=== PATIENT | female | born 1975 | race Caucasian/White ===

== ENCOUNTER 2016-11-14 12:51 | Emergency (ER) | payer MEDICAID, OTHER ==
[~2016-11-14] VITALS: Ht 167.6 cm; Wt 65.8 kg
[~2016-11-14 12:51] MED LIST: LAMO200T62 OR; MON10T PO
[2016-11-14 13:50] LABS: Urine Ca Oxalate Crystal FEW (None Seen); Urine Color Red (Yellow); Urine Glucose Normal (Normal); Urine Hyaline Cast MANY /lpf (0 - 2); Urine Ketone TRACE (Negative); Urine Mucus FEW (None Seen); Urine Nitrite Negative (Negative); Urine RBC 299 /hpf (0 - 4); Urine Squamous Epithelial Cell FEW /hpf (<5); Urine pH 5.5 (5.0-8.0)
[2016-11-14 13:56] LABS: Urine Bilirubin Negative (Negative); Urine Blood 2+ /uL (Negative)
[2016-11-14 14:02] LABS: Basophils # (auto) 0 uL; Basophils % (auto) 0.4 % (0.0-2.0); Eosinophils # (auto) 0.1 uL; Eosinophils % (auto) 0.8 % (0.0-7.0); Hematocrit 30.5 % (36.0-46.0); Hemoglobin 10.5 g/dL (12.2-16.2); Lymphocytes # (auto) 1.6 uL; Lymphocytes % (auto) 14.8 % (10.0-50.0); Mean Corpuscular Hemoglobin 34.5 pg (28.0-32.0); Mean Corpuscular Hgb Conc. 34.2 g/dL (32.0-36.0); Mean Corpuscular Volume 100.7 fL (80.0-100.0); Mean Platelet Volume 6.9 fL (7.4-10.4); Monocytes # (auto) 0.7 uL; Monocytes % (auto) 6.9 % (0.0-12.0); Neutrophils # (auto) 8.3 uL; Neutrophils % (auto) 77.1 % (37.0-80.0); Platelet Count (auto) 479 10^3/uL (140-450); Red Cell Distribution Width 15.9 % (11.6-16.0); White Blood Cell 10.8 10^3/uL (4.4-10.8)
[2016-11-14 14:33] LABS: Albumin 4.6 g/dL (3.4-5.0); Alkaline Phosphatase 132 U/L (45-117); Anion Gap 11 (5-15); Aspartate Aminotransferase 126 U/L (15-37); BUN/Creatinine Ratio 8.7; Bilirubin, Total 0.7 mg/dL (0.2-1.0); Blood Urea Nitrogen 25 mg/dL (7-18); Calcium 11.2 mg/dL (8.5-10.1); Carbon Dioxide 27 mmol/L (21-32); Chloride 95 mmol/L (98-107); GFR African American 23 mL/min; GFR Non-African American 19 mL/min; Glucose 90 mg/dL (74-106); Magnesium 1.4 mg/dL (1.6-2.6); Potassium 3.5 mmol/L (3.5-5.1); Sodium 133 mmol/L (136-145); Total Protein 8.5 g/dL (6.4-8.2)
[2016-11-14] MEDS ORDERED: cefTRIAXone 1GM/50ML D5W 50 ML IV ONE (15:15)
[2016-11-14] MEDS ORDERED: MAGNESIUM OXIDE 400 MG TAB PO ONE (15:15)
[2016-11-14 15:30] VITALS: BP 119/76
[2016-11-14 17:11] LABS: Salicylate < 1.7 mg/dL (2.8-20.0)
[2016-11-14 17:15] LABS: Acetaminophen < 2.0 ug/mL (10-30)
== END 2016-11-14 18:46 | disposition home or self-care (01) ==
LOC: ER 12:52
DX: F28 Other psychotic disorder not due to a substance or known physiological condition (principal); F32.9 Major depressive disorder, single episode, unspecified; F17.210 Nicotine dependence, cigarettes, uncomplicated; F41.9 Anxiety disorder, unspecified; D50.9 Iron deficiency anemia, unspecified; N39.0 Urinary tract infection, site not specified
CPT/HCPCS: 36415; 80053; 80307; 80320; 80329; 81001; 83735; 85025; 94761; 96365; 99284; J0696

== ENCOUNTER 2017-05-20 19:36 | Emergency (ER) | payer SELFPAY ==
[~2017-05-20] VITALS: Ht 167.6 cm; Wt 63.0 kg
[2017-05-20 22:53] VITALS: BP 148/109
== END 2017-05-20 23:46 | disposition home or self-care (01) ==
LOC: ER 19:36
DX: F32.9 Major depressive disorder, single episode, unspecified (principal); F41.9 Anxiety disorder, unspecified; Z79.899 Other long term (current) drug therapy; F17.210 Nicotine dependence, cigarettes, uncomplicated; Z76.0 Encounter for issue of repeat prescription

== ENCOUNTER 2018-06-03 12:54 | Emergency (ER) | payer MEDICAID, OTHER ==
[~2018-06-03] VITALS: Ht 172.7 cm; Wt 59.0 kg
[2018-06-03 13:25] VITALS: BP 145/96
[2018-06-03] MEDS ORDERED: SODIUM CHLORIDE 0.9% 1,000 ML IV ONE (13:28)
[2018-06-03] MEDS ORDERED: ONDANSETRON HCL 4 MG/2 ML VIAL IV ONE (13:30)
[2018-06-03] MEDS ORDERED: LORazepam 2MG/ML-1ML VIAL IV ONE (13:30)
[2018-06-03] MEDS ORDERED: PANTOPRAZOLE 40 MG/10 ML VIAL IV ONE (13:30)
[2018-06-03 13:43] LABS: Basophils # (auto) 0 uL; Basophils % (auto) 0.4 % (0.0-2.0); Eosinophils # (auto) 0 uL; Eosinophils % (auto) 0.1 % (0.0-7.0); Hematocrit 32.9 % (36.0-46.0); Hemoglobin 10.9 g/dL (12.2-16.2); Lymphocytes # (auto) 0.3 uL; Lymphocytes % (auto) 7.3 % (10.0-50.0); Mean Corpuscular Hemoglobin 29.7 pg (28.0-32.0); Mean Corpuscular Hgb Conc. 33.2 g/dL (32.0-36.0); Mean Corpuscular Volume 89.5 fL (80.0-100.0); Monocytes # (auto) 0.2 uL; Monocytes % (auto) 5.6 % (0.0-12.0); Neutrophils # (auto) 3.6 uL; Neutrophils % (auto) 86.6 % (37.0-80.0); Platelet Count (auto) 244 10^3/uL (140-450); Red Blood Cells 3.68 10^6/uL (4.0-5.20); White Blood Cell 4.2 10^3/uL (4.4-10.8)
[2018-06-03 13:53] LABS: Red Cell Distribution Width 20.6 % (11.8-14.3)
[2018-06-03 14:08] LABS: Albumin 3.2 g/dL (3.4-5.0); Calcium 8.8 mg/dL (8.5-10.1); Magnesium 1.6 mg/dL (1.6-2.6); Potassium 3.6 mmol/L (3.5-5.1)
[2018-06-03 14:13] LABS: BUN/Creatinine Ratio 24.7; Bilirubin, Total 0.4 mg/dL (0.2-1.0); Total Protein 8.5 g/dL (6.4-8.2)
== END 2018-06-03 15:28 | disposition home or self-care (01) ==
LOC: EDBD 12:54 → ER 12:54
DX: F10.239 Alcohol dependence with withdrawal, unspecified (principal); F41.9 Anxiety disorder, unspecified; F32.9 Major depressive disorder, single episode, unspecified; J45.909 Unspecified asthma, uncomplicated; F17.210 Nicotine dependence, cigarettes, uncomplicated; R42 Dizziness and giddiness; Y90.9 Presence of alcohol in blood, level not specified
CPT/HCPCS: 36415; 70450; 71250; 80053; 83735; 85025; 94761; 96361; 96374; 96375; 99284; C9113; J2060; J2405; J7030

== ENCOUNTER 2018-08-04 14:14 | Emergency (ER) | payer MEDICAID ==
[~2018-08-04] VITALS: Ht 165.1 cm; Wt 68.0 kg
[~2018-08-04 14:14] MED LIST changes: +ALBUAER3 IN; +DIPH25CA66 PO; +FLUT500M2 INH; -LAMO200T62 OR; +LAMO200T62 PO; +ONDA4TAB5 PO
[2018-08-04] MEDS ORDERED: SODIUM CHLORIDE 0.9% 500 ML IVB ONE (14:30)
[2018-08-04] MEDS ORDERED: PANTOPRAZOLE 40 MG/10 ML VIAL IV STA (14:30)
[2018-08-04 15:44] LABS: BUN/Creatinine Ratio 34.4; Calcium 9.1 mg/dL (8.5-10.1); Magnesium 1.7 mg/dL (1.6-2.6); Potassium 3.5 mmol/L (3.5-5.1)
[2018-08-04 15:48] LABS: Bilirubin, Total 0.3 mg/dL (0.2-1.0); Total Protein 7.2 g/dL (6.4-8.2)
[2018-08-04 16:05] LABS: Basophils # (auto) 0 uL; Basophils % (auto) 0.2 % (0.0-2.0); Eosinophils # (auto) 0 uL; Hemoglobin 8.9 g/dL (12.2-16.2); Lymphocytes # (auto) 0.6 uL; Lymphocytes % (auto) 16.7 % (10.0-50.0); Mean Corpuscular Hemoglobin 30.1 pg (28.0-32.0); Mean Corpuscular Volume 91.2 fL (80.0-100.0); Monocytes # (auto) 0.3 uL; Monocytes % (auto) 8.5 % (0.0-12.0); Neutrophils # (auto) 2.7 uL; Neutrophils % (auto) 73.6 % (37.0-80.0); Nucleated Red Blood Cells % 0.2 %; Platelet Count (auto) 160 10^3/uL (140-450); Red Blood Cells 2.96 10^6/uL (4.0-5.20); White Blood Cell 3.7 10^3/uL (4.4-10.8)
[2018-08-04 16:16] LABS: Red Cell Distribution Width 24.2 % (11.8-14.3)
[2018-08-04] MEDS ORDERED: PROCHLORPERAZINE EDISYLATE 5 MG/ML 2ML VIAL IV ONE (17:30)
[2018-08-04 18:00] VITALS: BP 101/74
== END 2018-08-04 17:25 | disposition home or self-care (01) ==
LOC: EDUNIT# 14:14 → EDBD 14:14 → ER 14:17
DX: F10.229 Alcohol dependence with intoxication, unspecified (principal); R11.2 Nausea with vomiting, unspecified; J45.909 Unspecified asthma, uncomplicated; Z79.899 Other long term (current) drug therapy; Z87.891 Personal history of nicotine dependence
CPT/HCPCS: 36415; 74176; 80053; 80320; 82150; 83690; 83735; 85025; 94761; 96361; 96374; 96375; 99284; C9113; J0780; J7040

== ENCOUNTER 2018-11-16 08:57 | Inpatient (IN) | payer MEDICAID | END 2018-11-18 16:30 | disposition home or self-care (01) | LOC: ER 08:57 → TELE 13:45 → TELE-WESTW 15:55 | DX: D64.9 Anemia, unspecified (principal); N17.0 Acute kidney failure with tubular necrosis; F32.9 Major depressive disorder, single episode, unspecified; Z87.11 Personal history of peptic ulcer disease; E87.6 Hypokalemia; F10.10 Alcohol abuse, uncomplicated ==

== ENCOUNTER 2019-02-13 14:30 | Emergency (ER) | payer MEDICAID ==
[~2019-02-13] VITALS: Ht 167.6 cm; Wt 50.8 kg
[~2019-02-13 14:30] MED LIST changes: -ALBUAER3 IN; -DIPH25CA66 PO; -FLUT500M2 INH; -ONDA4TAB5 PO
[2019-02-13] MEDS ORDERED: ONDANSETRON HCL 4 MG/2 ML VIAL IV ONE ×2 (15:00→17:15)
[2019-02-13] MEDS ORDERED: SODIUM CHLORIDE 0.9% 1,000 ML IV ONE (15:00)
[2019-02-13 15:49] LABS: Basophils # (auto) 0.1 uL; Eosinophils # (auto) 0.4 uL; Hematocrit 33.7 % (36.0-46.0); Mean Corpuscular Hemoglobin 33.5 pg (28.0-32.0); Monocytes # (auto) 0.5 uL; Nucleated Red Blood Cells % 0.1 %; White Blood Cell 7.3 10^3/uL (4.4-10.8)
[2019-02-13 15:54] LABS: Hemoglobin 11.2 g/dL (12.2-16.2); Lymphocytes # (auto) 1.4 uL; Mean Corpuscular Hgb Conc. 33.4 g/dL (32.0-36.0); Mean Corpuscular Volume 100.4 fL (80.0-100.0); Monocytes % (auto) 7.2 % (0.0-12.0); Neutrophils # (auto) 4.9 uL; Neutrophils % (auto) 67.8 % (37.0-80.0); Red Blood Cells 3.35 10^6/uL (4.0-5.20)
[2019-02-13 16:02] LABS: Red Cell Distribution Width 20.8 % (11.8-14.3)
[2019-02-13 16:03] LABS: Platelet Count (auto) 549 10^3/uL (140-450)
[2019-02-13 16:07] LABS: Calcium 11.2 mg/dL (8.5-10.1)
[2019-02-13 16:10] LABS: BUN/Creatinine Ratio 6.9
[2019-02-13] MEDS ORDERED: POTASSIUM CHL 20MEQ/100ML 100 ML IV ONE (16:45)
[2019-02-13] MEDS ORDERED: POTASSIUM CHL 20 Meq TABLET PO ONE (16:45)
[2019-02-13] MEDS ORDERED: ALUM & MAG HYDROX-SIMETH LIQ(MAALOX) 30 ML PO ONE (17:00)
[2019-02-13 18:20] VITALS: BP 119/86
[2019-02-13 18:21] LABS: Blood Alcohol < 3.0 mg/dL (0-5); Lipase 501 U/L (73-393); Magnesium 1.9 mg/dL (1.6-2.6)
== END 2019-02-13 19:20 | disposition home or self-care (01) ==
LOC: ER 14:30
DX: E87.6 Hypokalemia (principal); R42 Dizziness and giddiness; F17.210 Nicotine dependence, cigarettes, uncomplicated; J45.909 Unspecified asthma, uncomplicated
CPT/HCPCS: 36415; 80048; 80320; 83690; 83735; 85025; 93005; 94761; 96361; 96365; 96366; 96375; 96376; 99284; J2405; J3480; J7030

== ENCOUNTER 2019-03-28 11:30 | Emergency (ER) | payer MEDICAID ==
[~2019-03-28] VITALS: Ht 167.6 cm; Wt 54.4 kg
[2019-03-28] MEDS ORDERED: SODIUM CHLORIDE 0.9% 1,000 ML IV ONE (11:47)
[2019-03-28] MEDS ORDERED: PROCHLORPERAZINE EDISYLATE 5 MG/ML 2ML VIAL IV ONE (12:00)
[2019-03-28] MEDS ORDERED: FAMOTIDINE (10MG/ML) 2ML VL IV ONE (12:00)
[2019-03-28 12:14] LABS: Basophils # (auto) 0.1 uL; Basophils % (auto) 0.9 % (0.0-2.0); Eosinophils # (auto) 0.1 uL; Eosinophils % (auto) 1.1 % (0.0-7.0); Hemoglobin 11.6 g/dL (12.2-16.2); Lymphocytes # (auto) 0.9 uL; Lymphocytes % (auto) 15.7 % (10.0-50.0); Mean Corpuscular Hemoglobin 32.3 pg (28.0-32.0); Mean Corpuscular Volume 94.9 fL (80.0-100.0); Monocytes # (auto) 0.5 uL; Monocytes % (auto) 8.3 % (0.0-12.0); Neutrophils # (auto) 4.1 uL; Platelet Count (auto) 571 10^3/uL (140-450); Red Blood Cells 3.58 10^6/uL (4.0-5.20); Red Cell Distribution Width 16.3 % (11.8-14.3); White Blood Cell 5.6 10^3/uL (4.4-10.8)
[2019-03-28 12:22] LABS: Albumin 3.4 g/dL (3.4-5.0); BUN/Creatinine Ratio 11.1; Calcium 9.6 mg/dL (8.5-10.1)
[2019-03-28 12:24] LABS: Bilirubin, Total 0.4 mg/dL (0.2-1.0); Total Protein 7.7 g/dL (6.4-8.2)
[2019-03-28 12:32] LABS: Potassium 2.9 mmol/L (3.5-5.1)
[2019-03-28] MEDS ORDERED: POTASSIUM CHL 20 Meq TABLET PO ONE (14:30)
[2019-03-28 18:15] VITALS: BP 159/95
== END 2019-03-28 18:48 | disposition home or self-care (01) ==
LOC: EDBD 11:30 → EDSEX 11:30 → ER 11:32
DX: K29.70 Gastritis, unspecified, without bleeding (principal); E87.6 Hypokalemia; J45.909 Unspecified asthma, uncomplicated; Z87.891 Personal history of nicotine dependence; Z87.11 Personal history of peptic ulcer disease
CPT/HCPCS: 36415; 80053; 83690; 85025; 94761; 96361; 96374; 96375; 99283; J0780; J3490; J7030

== ENCOUNTER 2019-04-21 14:08 | Inpatient (IN) | payer MEDICAID ==
[~2019-04-21] VITALS: Ht 167.6 cm; Wt 80.8 kg
[2019-04-21 15:16] LABS: Basophils # (auto) 0 uL; Basophils % (auto) 0.4 % (0.0-2.0); Hemoglobin 11.8 g/dL (12.2-16.2); Lymphocytes # (auto) 1.6 uL; Monocytes # (auto) 0.5 uL; Neutrophils # (auto) 4.6 uL
[2019-04-21 15:18] LABS: Eosinophils # (auto) 0.8 uL; Eosinophils % (auto) 10.4 % (0.0-7.0); Hematocrit 35.7 % (36.0-46.0); Lymphocytes % (auto) 21.6 % (10.0-50.0); Mean Corpuscular Hemoglobin 31.4 pg (28.0-32.0); Monocytes % (auto) 6.9 % (0.0-12.0); Neutrophils % (auto) 60.7 % (37.0-80.0); Nucleated Red Blood Cells % 0.1 %; Platelet Count (auto) 465 10^3/uL (140-450); Red Blood Cells 3.76 10^6/uL (4.0-5.20); Red Cell Distribution Width 14.5 % (11.8-14.3); White Blood Cell 7.5 10^3/uL (4.4-10.8)
[2019-04-21 15:27] LABS: Albumin 3.7 g/dL (3.4-5.0); Potassium 3.8 mmol/L (3.5-5.1)
[2019-04-21 15:28] LABS: BUN/Creatinine Ratio 17.1
[2019-04-21 15:31] LABS: Bilirubin, Total 0.4 mg/dL (0.2-1.0); Total Protein 8.2 g/dL (6.4-8.2)
[2019-04-21] MEDS ORDERED: PANTOPRAZOLE 40 MG/10 ML VIAL INJ IV ONE (18:00)
[2019-04-21 18:44] LABS: Urine Bacteria MOD /hpf (None Seen); Urine Blood Negative /uL (Negative); Urine Mucus FEW (None Seen); Urine Specific Gravity 1.029 (1.001-1.035); Urine WBC 5 /hpf (0 - 5)
[2019-04-21 18:51] LABS: INR 0.93 (0.9-1.15)
[2019-04-21] MEDS ORDERED: ACETAMINOPHEN 325 MG TAB PO ONE (20:30)
[2019-04-21] MEDS ORDERED: ONDANSETRON HCL 4 MG/2 ML VIAL IV PRN (21:30)
[2019-04-21] MEDS: D5W/SOD CHLO 0.9% 1,000 ML IV SCH (21:49)
[2019-04-21] MEDS: MONTELUKAST SODIUM 10 MG TAB PO SCH (21:50)
[2019-04-21] MEDS: SUCRALFATE 1 GM TAB PO SCH (21:50)
[2019-04-21] MEDS: lamoTRIgine 100 MG TAB PO SCH (21:50)
[2019-04-21 21:54] LABS: Hemoglobin 10.4 g/dL (12.2-16.2)
[2019-04-21 22:30] VITALS: BP 122/88
[2019-04-21] MEDS ORDERED: INFLUENZA QUAD 2019-2020 0.5ml SYRG IM ONE (23:00)
[2019-04-22 01:01] VITALS: BP 122/88
[2019-04-22] MEDS: ACETAMINOPHEN 325 MG TAB PO PRN ×2 (04:08→10:01)
[2019-04-22] MEDS: SUCRALFATE 1 GM TAB PO SCH ×4 (06:02→22:12)
[2019-04-22 06:25] LABS: Basophils # (auto) 0 uL; Eosinophils # (auto) 0.7 uL; Eosinophils % (auto) 14.2 % (0.0-7.0); Hematocrit 30.5 % (36.0-46.0); Hemoglobin 10.1 g/dL (12.2-16.2); Lymphocytes # (auto) 1.8 uL; Lymphocytes % (auto) 35.3 % (10.0-50.0); Mean Corpuscular Hemoglobin 31.6 pg (28.0-32.0); Mean Corpuscular Hgb Conc. 33.2 g/dL (32.0-36.0); Monocytes # (auto) 0.4 uL; Monocytes % (auto) 7.7 % (0.0-12.0); Neutrophils # (auto) 2.1 uL; Neutrophils % (auto) 41.8 % (37.0-80.0); Nucleated Red Blood Cells % 0.1 %; Platelet Count (auto) 361 10^3/uL (140-450); Red Blood Cells 3.21 10^6/uL (4.0-5.20); Red Cell Distribution Width 14.3 % (11.8-14.3); White Blood Cell 5.1 10^3/uL (4.4-10.8)
[2019-04-22 07:08] LABS: Calcium 8.9 mg/dL (8.5-10.1); Potassium 3.5 mmol/L (3.5-5.1)
[2019-04-22 07:10] LABS: BUN/Creatinine Ratio 18.9
--- NOTE | 2019-04-22 07:30 | NUR ---
Opening Shift Note Assumed care of patient, awake and alert. No S/S of distress/SOB or pain. Instructed on POC and to call for assist PRN, will continue to monitor for changes Q1hr and PRN.
[2019-04-22 09:00] VITALS: BP 106/68
[2019-04-22] MEDS: lamoTRIgine 100 MG TAB PO SCH ×2 (09:42→22:13)
[2019-04-22] MEDS: PANTOPRAZOLE 40 MG TAB PO SCH ×2 (09:42→22:13)
[2019-04-22] MEDS: D5W/SOD CHLO 0.9% 1,000 ML IV SCH (11:32)
--- NOTE | 2019-04-22 12:00 | NUR ---
Nutrition Assessment/consult Notes please see attached link for complete assessment Est. Needs IBW 59 [id number] kcal (25-30 kcal/kgBW), 59-70 gms pro (1.0-1.2 gms/kgBW). Will continue to monitor pertinent labs and reassess nutrient need prn Addendum: 04/22/19 at [address] Amended: Links added.
--- NOTE | 2019-04-22 12:02 | NUR ---
Called/paged Dr. DYE called re:PT REQUEST ATIVAN FOR ANXIETY . Waiting for call back. Continue care.
[2019-04-22] MEDS ORDERED: VENL75CA3 PO (12:05)
[2019-04-22] MEDS ORDERED: LORA0.5T12 PO ×2 (12:05→19:57)
[2019-04-22 12:27] VITALS: BP 108/74
[2019-04-22] MEDS: LORazepam 0.5 MG TAB PO PRN ×2 (13:44→22:14)
[2019-04-22] MEDS: VENLAFAXINE HCL 37.5mg XR cap PO SCH (13:54)
[2019-04-22 17:00] VITALS: BP 104/74
[2019-04-22] MEDS: Ensure Enlive Strawberry 8oz Bottle PO SCH (18:10)
--- NOTE | 2019-04-22 18:24 | NUR ---
FAXED REQUEST TO PT'S PHARMACY, [facility], FOR A COMPLETE LIST OF PT'S CURRENT HOME MEDICATION.
[2019-04-22] MEDS ORDERED: LAM100T OR (20:00)
[2019-04-22] MEDS ORDERED: LORA1TAB12 PO (20:02)
[2019-04-22] MEDS ORDERED: ONDA-144 PO (20:04)
[2019-04-22] MEDS ORDERED: IBUP800T24 PO (20:05)
[2019-04-22] MEDS ORDERED: HYDR50TA69 PO (20:07)
[2019-04-22 21:28] VITALS: BP 114/80
[2019-04-22] MEDS: DOCUSATE SOD 100 MG CAP PO SCH (22:13)
[2019-04-22] MEDS: MONTELUKAST SODIUM 10 MG TAB PO SCH (22:19)
--- NOTE | 2019-04-23 00:50 | NUR ---
TALKED TO [facility]PITAL[facility], NEW ORDER FOR SLEEPING PILL.
[2019-04-23] MEDS ORDERED: TEMAZEPAM 15 MG CAP PO ONE (01:00)
[2019-04-23] MEDS: D5W/SOD CHLO 0.9% 1,000 ML IV SCH ×2 (01:03→13:01)
[2019-04-23] MEDS ORDERED: PANT1INJ3 PO (02:24)
[2019-04-23] MEDS ORDERED: VENL75CA78 PO (02:24)
[2019-04-23] MEDS ORDERED: POTA-220 PO (02:24)
[2019-04-23] MEDS ORDERED: TRAZ50TA2 PO (02:24)
[2019-04-23] MEDS ORDERED: RANI1TAB PO (02:24)
[2019-04-23] MEDS ORDERED: ALBUAER3 IN (02:24)
[2019-04-23 05:17] VITALS: BP 100/68
[2019-04-23 06:05] LABS: Basophils # (auto) 0 uL; Basophils % (auto) 0.8 % (0.0-2.0); Eosinophils # (auto) 0.7 uL; Eosinophils % (auto) 13.6 % (0.0-7.0); Hematocrit 29.3 % (36.0-46.0); Hemoglobin 9.8 g/dL (12.2-16.2); Lymphocytes # (auto) 1.6 uL; Lymphocytes % (auto) 32.8 % (10.0-50.0); Mean Corpuscular Hemoglobin 31.7 pg (28.0-32.0); Mean Corpuscular Hgb Conc. 33.4 g/dL (32.0-36.0); Mean Corpuscular Volume 94.8 fL (80.0-100.0); Monocytes # (auto) 0.4 uL; Monocytes % (auto) 7.8 % (0.0-12.0); Neutrophils # (auto) 2.2 uL; Platelet Count (auto) 364 10^3/uL (140-450); Red Blood Cells 3.09 10^6/uL (4.0-5.20); Red Cell Distribution Width 14.3 % (11.8-14.3)
[2019-04-23] MEDS: SUCRALFATE 1 GM TAB PO SCH ×2 (06:16→12:00)
[2019-04-23] MEDS: LORazepam 0.5 MG TAB PO PRN (06:16)
[2019-04-23 06:59] LABS: Calcium 8.7 mg/dL (8.5-10.1); Potassium 3.5 mmol/L (3.5-5.1)
[2019-04-23 07:01] LABS: BUN/Creatinine Ratio 8.8
[2019-04-23] MEDS: Ensure Enlive Strawberry 8oz Bottle PO SCH ×2 (08:00→12:00)
[2019-04-23 09:00] VITALS: BP 104/67
[2019-04-23 10:26] VITALS: BP 100/68
[2019-04-23] MEDS: VENLAFAXINE HCL 37.5mg XR cap PO SCH (10:42)
[2019-04-23] MEDS: PANTOPRAZOLE 40 MG TAB PO SCH (10:42)
[2019-04-23] MEDS: DOCUSATE SOD 100 MG CAP PO SCH (10:42)
[2019-04-23] MEDS: lamoTRIgine 100 MG TAB PO SCH (10:43)
[2019-04-23 13:00] VITALS: BP 101/71
--- NOTE | 2019-04-23 16:00 | NUR ---
Discharge instructions given as ordered. Encourage to follow up with PMD as instructed. All questions and concerns addressed. Patient verbalized understanding. Medication reconciliation form completed and copy given to patient. Home medications held in Pharmacy returned to patient, and needed vaccines given. IV removed with catheter intact, pressure dressing applied. WAITING FOR TRANSPORTATION.
== END 2019-04-23 16:10 | disposition home or self-care (01) | DRG 254 ==
LOC: ER 14:08 → OVERFLOW 14:09 → EAST 23:13
PROVIDERS: ADMIT Nurse Practitioner; ATTEND Nurse Practitioner
DX: K92.1 Melena (principal); D64.9 Anemia, unspecified; F10.10 Alcohol abuse, uncomplicated; F32.9 Major depressive disorder, single episode, unspecified; J45.909 Unspecified asthma, uncomplicated; K21.9 Gastro-esophageal reflux disease without esophagitis; K59.00 Constipation, unspecified; F41.9 Anxiety disorder, unspecified; F51.04 Psychophysiologic insomnia; N39.0 Urinary tract infection, site not specified; Z79.1 Long term (current) use of non-steroidal anti-inflammatories (NSAID); Z83.3 Family history of diabetes mellitus; Z87.11 Personal history of peptic ulcer disease; Z87.891 Personal history of nicotine dependence
CPT/HCPCS: 36415; 71045; 74176; 76705; 80048; 80053; 81001; 81025; 83690; 83735; 85014; 85018; 85025; 85610; 85730; 86850; 86900; 86901; 87081; 87086; 94761; 96372; 96374; C9113; G0378; J7042

== ENCOUNTER 2019-05-09 13:20 | Emergency (ER) | payer MEDICAID ==
[~2019-05-09] VITALS: Ht 167.6 cm; Wt 70.3 kg
[~2019-05-09 13:20] MED LIST changes: +ALBUAER3 IN; +HYDR50TA69 PO; +LAM100T OR; -LAMO200T62 PO; +LORA1TAB12 PO; +ONDA-144 PO; +POTA-220 PO; +RANI1TAB PO; +TRAZ50TA2 PO; +VENL75CA3 PO; +VENL75CA78 PO
[2019-05-09] MEDS ORDERED: SODIUM CHLORIDE 0.9% 1,000 ML IV ONE ×2 (13:37)
[2019-05-09] MEDS ORDERED: PANTOPRAZOLE 40 MG/10 ML VIAL INJ IV ONE (13:45)
[2019-05-09 13:58] LABS: Basophils # (auto) 0.1 uL; Basophils % (auto) 0.6 % (0.0-2.0); Eosinophils # (auto) 0.1 uL; Eosinophils % (auto) 1.5 % (0.0-7.0); Hematocrit 31.4 % (36.0-46.0); Hemoglobin 10.4 g/dL (12.2-16.2); Mean Corpuscular Hemoglobin 30.7 pg (28.0-32.0); Mean Corpuscular Hgb Conc. 33.1 g/dL (32.0-36.0); Mean Corpuscular Volume 92.7 fL (80.0-100.0); Monocytes # (auto) 0.3 uL; Monocytes % (auto) 3.1 % (0.0-12.0); Neutrophils # (auto) 6.5 uL; Neutrophils % (auto) 81.8 % (37.0-80.0); Platelet Count (auto) 280 10^3/uL (140-450); Red Blood Cells 3.38 10^6/uL (4.0-5.20); Red Cell Distribution Width 14.2 % (11.8-14.3)
[2019-05-09 14:15] LABS: INR 0.98 (0.9-1.15); Partial Thromboplastin Time 22.2 sec (23.64-32.05)
[2019-05-09 14:16] LABS: Albumin 3.7 g/dL (3.4-5.0); Anion Gap 12 (5-15); Blood Urea Nitrogen 17 mg/dL (7-18); Calcium 8.7 mg/dL (8.5-10.1); Carbon Dioxide 22 mmol/L (21-32); Chloride 107 mmol/L (98-107); Glucose 106 mg/dL (74-106); Potassium 3.3 mmol/L (3.5-5.1); Sodium 141 mmol/L (136-145)
[2019-05-09 14:21] LABS: Alanine Aminotransferase 14 U/L (13-56); Alkaline Phosphatase 91 U/L (45-117); Aspartate Aminotransferase 20 U/L (15-37); BUN/Creatinine Ratio 20.2; Bilirubin, Total 0.2 mg/dL (0.2-1.0); GFR African American 94 mL/min; GFR Non-African American 78 mL/min; Total Protein 7.9 g/dL (6.4-8.2)
[2019-05-09] MEDS ORDERED: PROCHLORPERAZINE EDISYLATE 5 MG/ML 2ML VIAL IV ONE (14:30)
[2019-05-09] MEDS ORDERED: LORazepam 2MG/ML-1ML VIAL IV ONE ×2 (14:30→16:45)
[2019-05-09] MEDS ORDERED: POTASSIUM EFFERVESENT TAB 25 MEQ PO ONE (15:00)
[2019-05-09 17:00] VITALS: BP 117/84
== END 2019-05-09 18:21 | disposition home or self-care (01) ==
LOC: EDBD 13:20 → ER 13:26
DX: K29.70 Gastritis, unspecified, without bleeding (principal); E87.6 Hypokalemia; F10.10 Alcohol abuse, uncomplicated; D50.9 Iron deficiency anemia, unspecified; J45.909 Unspecified asthma, uncomplicated; Z79.899 Other long term (current) drug therapy
CPT/HCPCS: 36415; 71045; 80053; 80320; 84484; 85025; 85610; 85730; 86850; 86900; 86901; 94761; 96361; 96374; 96375; 96376; 99284; C9113; J0780; J2060; J7030

== ENCOUNTER 2019-10-17 18:55 | Emergency (ER) | payer MEDICAID ==
[~2019-10-17] VITALS: Ht 167.6 cm; Wt 49.9 kg
[2019-10-17 19:46] LABS: Basophils # (auto) 0 10 ^3/uL (0-0.2); Basophils % (auto) 0.6 % (0.0-2.0); Eosinophils # (auto) 0.1 10 ^3/uL (0-0.8); Eosinophils % (auto) 3.3 % (0.0-7.0); Hematocrit 41.6 % (36.0-46.0); Hemoglobin 13.9 g/dL (12.2-16.2); Lymphocytes # (auto) 1.3 10 ^3/uL (0.4-5.4); Lymphocytes % (auto) 30.4 % (10.0-50.0); Mean Corpuscular Hemoglobin 31.1 pg (28.0-32.0); Mean Corpuscular Hgb Conc. 33.4 g/dL (32.0-36.0); Monocytes # (auto) 0.2 10 ^3/uL (0-1.3); Monocytes % (auto) 5.3 % (0.0-12.0); Neutrophils # (auto) 2.5 10 ^3/uL (1.6-8.6); Neutrophils % (auto) 60.4 % (37.0-80.0); Nucleated Red Blood Cells % 0.1 %; Platelet Count (auto) 142 10^3/uL (140-450); Red Blood Cells 4.47 10^6/uL (4.0-5.20); Red Cell Distribution Width 15.6 % (11.8-14.3); White Blood Cell 4.2 10^3/uL (4.4-10.8)
[2019-10-17 20:03] LABS: INR 1.07 (0.9-1.15); Partial Thromboplastin Time 21.8 sec (23.64-32.05)
[2019-10-17 20:06] LABS: Alanine Aminotransferase 199 U/L (13-56); Albumin 3.8 g/dL (3.4-5.0); Anion Gap 16 (5-15); Aspartate Aminotransferase 554 U/L (15-37); BUN/Creatinine Ratio 18.3; Blood Urea Nitrogen 13 mg/dL (7-18); Calcium 8.1 mg/dL (8.5-10.1); Carbon Dioxide 16 mmol/L (21-32); Chloride 109 mmol/L (98-107); GFR African American 114 mL/min; GFR Non-African American 95 mL/min; Glucose 73 mg/dL (74-106); Magnesium 1.6 mg/dL (1.6-2.6); Sodium 141 mmol/L (136-145)
[2019-10-17 20:08] LABS: Alkaline Phosphatase 186 U/L (45-117); Bilirubin, Total 0.2 mg/dL (0.2-1.0); Total Protein 8.2 g/dL (6.4-8.2)
[2019-10-17 20:15] LABS: Potassium 2.9 mmol/L (3.5-5.1)
[2019-10-17] MEDS ORDERED: THIAMINE INJ 100 MG in SODIUM CHLORIDE 0.9% 1,000 ML IV ONE (20:30)
[2019-10-17] MEDS ORDERED: POTASSIUM EFFERVESENT TAB 25 MEQ PO ONE (20:30)
[2019-10-17] MEDS ORDERED: POTASSIUM CHL 20MEQ/100ML 100 ML IV ONE (20:30)
[2019-10-17] MEDS ORDERED: IOHEXOL 350 MG/ML 100ML IJ ONE (22:53)
[2019-10-18 00:10] VITALS: BP 141/95
[2019-10-18] MEDS ORDERED: FOLIC ACID 1 MG, MULTIPLE VITAMIN 10 ML, MAGNESIUM SULF SDV 50% 8 MEQ, THIAMINE INJ 100... INJ SCH ×5 (12:00)
== END 2019-10-18 00:19 | disposition home or self-care (01) ==
LOC: ER 18:55 → EDBD 18:55 → ER 10-18 00:19
DX: F10.129 Alcohol abuse with intoxication, unspecified (principal); K70.30 Alcoholic cirrhosis of liver without ascites; N39.0 Urinary tract infection, site not specified; J45.909 Unspecified asthma, uncomplicated; Z79.899 Other long term (current) drug therapy; Y90.6 Blood alcohol level of 120-199 mg/100 ml
CPT/HCPCS: 36415; 71045; 71275; 80053; 80320; 82140; 83735; 83880; 84132; 84443; 84484; 85025; 85379; 85610; 85730; 93005; 96365; 96366; 96368; 99285; J3411; J3480; J7030; Q9967

== ENCOUNTER 2022-04-06 05:04 | Inpatient (IN) | payer MEDICAID ==
[~2022-04-06] VITALS: Ht 162.6 cm; Wt 80.9 kg
[~2022-04-06 05:04] MED LIST changes: -LORA1TAB12 PO; +LORA1TAB23 PO
[2022-04-06 06:12] LABS: Basophils # (auto) 0 10 ^3/uL (0-0.2); Basophils % (auto) 0.4 % (0.0-2.0); Eosinophils # (auto) 0 10 ^3/uL (0-0.8); Eosinophils % (auto) 0.1 % (0.0-7.0); Hematocrit 34.3 % (36.0-46.0); Hemoglobin 11.4 g/dL (12.2-16.2); Lymphocytes # (auto) 1.7 10 ^3/uL (0.4-5.4); Lymphocytes % (auto) 16.2 % (10.0-50.0); Mean Corpuscular Hemoglobin 31.4 pg (28.0-32.0); Mean Corpuscular Hgb Conc. 33.1 g/dL (32.0-36.0); Mean Corpuscular Volume 94.7 fL (80.0-100.0); Monocytes # (auto) 0.9 10 ^3/uL (0-1.3); Monocytes % (auto) 8.7 % (0.0-12.0); Neutrophils # (auto) 7.7 10 ^3/uL (1.6-8.6); Neutrophils % (auto) 74.6 % (37.0-80.0); Nucleated Red Blood Cells % 0.1 %; Red Blood Cells 3.62 10^6/uL (4.0-5.20); Red Cell Distribution Width 13.6 % (11.8-14.3); White Blood Cell 10.3 10^3/uL (4.4-10.8)
[2022-04-06 06:33] LABS: Albumin 3.8 g/dL (3.4-5.0); Anion Gap 9 (5-15); BUN/Creatinine Ratio 23.5; Blood Alcohol < 3.0 mg/dL (0-5); Blood Urea Nitrogen 27 mg/dL (7-18); Calcium 9.1 mg/dL (8.5-10.1); Carbon Dioxide 25 mmol/L (21-32); Chloride 104 mmol/L (98-107); GFR African American 65 mL/min; GFR Non-African American 54 mL/min; Glucose 94 mg/dL (74-106); Magnesium 1.8 mg/dL (1.6-2.6); Potassium 4.2 mmol/L (3.5-5.1); Sodium 138 mmol/L (136-145)
[2022-04-06 06:34] LABS: INR 0.97 (0.9-1.15); Partial Thromboplastin Time 24.8 sec (24.6-33.4)
[2022-04-06 06:36] LABS: Alanine Aminotransferase 19 U/L (13-56); Alkaline Phosphatase 63 U/L (45-117); Aspartate Aminotransferase 31 U/L (15-37); Bilirubin, Total 0.3 mg/dL (0.2-1.0); Total Protein 7.2 g/dL (6.4-8.2)
[2022-04-06] MEDS ORDERED: SODIUM CHLORIDE 0.9% 1,000 ML IV ONE ×3 (07:30→12:15)
[2022-04-06] MEDS ORDERED: THIAMINE 100mg/ml INJ (200mg/2ml VIAL) IV ONE (07:30)
[2022-04-06] MEDS ORDERED: LORazepam 2MG/ML-1ML VIAL IV ONE (07:45)
[2022-04-06 07:53] LABS: Urine Bacteria FEW /hpf (None Seen); Urine Blood Negative /uL (Negative); Urine Specific Gravity 1.009 (1.001-1.035); Urine WBC 48 /hpf (0 - 5)
[2022-04-06 08:07] LABS: Alcohol, Urine < 3.0 mg/dL (0-10); Amphetamine Screen, Urine NEGATIVE (NEGATIVE); Barbiturate Scree,Urine NEGATIVE (NEGATIVE); Benzodiazephine Screen, Urine POSITIVE (NEGATIVE); Cannabinoid Screen, Urine NEGATIVE (NEGATIVE); Cocaine Screen, Urine NEGATIVE (NEGATIVE); Opiate Scree,Urine NEGATIVE (NEGATIVE); Phencyclidine Screen, Urine NEGATIVE (NEGATIVE)
[2022-04-06] MEDS ORDERED: diphenhdrAMINE HCL 50 MG/1 ML VL IM ONE (11:15)
[2022-04-06] MEDS ORDERED: HALOPERIDOL LACTATE 5 MG/ML INJ VIAL IM ONE (11:15)
[2022-04-06] MEDS ORDERED: LORazepam 2MG/ML-1ML VIAL IM ONE (11:15)
[2022-04-06] MEDS ORDERED: NITROGLYCERIN 0.4 MG SL TAB SL PRN (12:15)
[2022-04-06] MEDS ORDERED: cefTRIAXone 1GM/50ML D5W 50 ML IV ONE (12:15)
[2022-04-06] MEDS ORDERED: MORPHINE SULFATE INJ 2 MG/ml SYRG IV PRN (12:15)
[2022-04-06] MEDS ORDERED: LORazepam 2MG/ML-1ML VIAL IV PRN (12:15)
[2022-04-06] MEDS: LORazepam 2MG/ML-1ML VIAL IV PRN (21:39)
[2022-04-07 06:47] LABS: Calcium 9.1 mg/dL (8.5-10.1); Potassium 3.8 mmol/L (3.5-5.1)
[2022-04-07 06:49] LABS: BUN/Creatinine Ratio 21.3
[2022-04-07 06:51] LABS: Basophils # (auto) 0 10 ^3/uL (0-0.2); Basophils % (auto) 0.3 % (0.0-2.0); Eosinophils # (auto) 0 10 ^3/uL (0-0.8); Eosinophils % (auto) 0.7 % (0.0-7.0); Hematocrit 33.5 % (36.0-46.0); Lymphocytes # (auto) 1.7 10 ^3/uL (0.4-5.4); Lymphocytes % (auto) 25.3 % (10.0-50.0); Mean Corpuscular Hemoglobin 30.6 pg (28.0-32.0); Mean Corpuscular Hgb Conc. 32.7 g/dL (32.0-36.0); Mean Corpuscular Volume 93.4 fL (80.0-100.0); Monocytes # (auto) 0.7 10 ^3/uL (0-1.3); Monocytes % (auto) 10.2 % (0.0-12.0); Neutrophils # (auto) 4.3 10 ^3/uL (1.6-8.6); Neutrophils % (auto) 63.5 % (37.0-80.0); Nucleated Red Blood Cells % 0.1 %; Red Blood Cells 3.59 10^6/uL (4.0-5.20); Red Cell Distribution Width 13.4 % (11.8-14.3); White Blood Cell 6.7 10^3/uL (4.4-10.8)
[2022-04-07] MEDS: cefTRIAXone 1GM/50ML D5W 50 ML IV SCH (09:00)
[2022-04-07] MEDS: LORazepam 2MG/ML-1ML VIAL IV PRN ×3 (09:52→21:13)
[2022-04-07] MEDS: ENOXAPARIN SOD 40 MG/0.4 ML SYRINGE SC SCH (10:00)
[2022-04-07] MEDS: QUEtiapine FUMARATE 100 MG TAB PO SCH ×3 (10:45→21:07)
[2022-04-07] MEDS: FOLIC ACID 1 MG, MULTIPLE VITAMIN 10 ML, THIAMINE INJ 100 MG in SODIUM CHLORIDE 0.9% 1,... INJ SCH (12:00)
[2022-04-07] MEDS ORDERED: LORazepam 2MG/ML-1ML VIAL IM ONE (13:45)
[2022-04-07] MEDS: FOLIC ACID 1 MG TAB PO SCH (14:28)
[2022-04-07] MEDS: THIAMINE HCL 100 MG TAB PO SCH (14:28)
[2022-04-07 15:18] VITALS: BP 122/86
[2022-04-07 15:32] VITALS: BP 122/86
[2022-04-07 22:00] VITALS: BP 141/75
[2022-04-08] MEDS: LORazepam 2MG/ML-1ML VIAL IV PRN (02:52)
[2022-04-08 05:00] VITALS: BP 149/99
[2022-04-08] MEDS: QUEtiapine FUMARATE 100 MG TAB PO SCH (05:09)
[2022-04-08 09:00] VITALS: BP 137/99
[2022-04-08] MEDS: FOLIC ACID 1 MG TAB PO SCH (10:10)
[2022-04-08] MEDS: THIAMINE HCL 100 MG TAB PO SCH (10:10)
[2022-04-08] MEDS: ENOXAPARIN SOD 40 MG/0.4 ML SYRINGE SC SCH (10:11)
[2022-04-08] MEDS ORDERED: HALOPERIDOL LACTATE 5 MG/ML INJ VIAL IM PRN (10:15)
[2022-04-08] MEDS ORDERED: CYANOCOBALAMIN (B-12) 1000 MCG/1 ML VIAL IM ONE (10:15)
[2022-04-08] MEDS: cefTRIAXone 1GM/50ML D5W 50 ML IV SCH (10:18)
[2022-04-08 13:00] VITALS: BP 135/100
[2022-04-08] MEDS: FOLIC ACID 1 MG, MULTIPLE VITAMIN 10 ML, THIAMINE INJ 100 MG in SODIUM CHLORIDE 0.9% 1,... INJ SCH (13:30)
[2022-04-08 14:01] LABS: Folate (Folic Acid) 12.25 ng/mL (5.38-24)
[2022-04-08 16:53] VITALS: BP 135/93
[2022-04-08 20:00] VITALS: BP 129/91
[2022-04-08 21:00] VITALS: BP 129/91
[2022-04-09] MEDS: LORazepam 2MG/ML-1ML VIAL IV PRN (02:46)
[2022-04-09 05:00] VITALS: BP_SYST 126; BP_SYST 159; BP_DIAS 81; BP_DIAS 89
[2022-04-09 05:17] LABS: Basophils # (auto) 0 10 ^3/uL (0-0.2); Basophils % (auto) 0.4 % (0.0-2.0); Eosinophils # (auto) 0.2 10 ^3/uL (0-0.8); Eosinophils % (auto) 3.8 % (0.0-7.0); Hematocrit 33.2 % (36.0-46.0); Hemoglobin 11.2 g/dL (12.2-16.2); Lymphocytes # (auto) 1.7 10 ^3/uL (0.4-5.4); Lymphocytes % (auto) 29.6 % (10.0-50.0); Mean Corpuscular Hemoglobin 31.3 pg (28.0-32.0); Mean Corpuscular Hgb Conc. 33.8 g/dL (32.0-36.0); Mean Corpuscular Volume 92.4 fL (80.0-100.0); Monocytes # (auto) 0.5 10 ^3/uL (0-1.3); Neutrophils # (auto) 3.3 10 ^3/uL (1.6-8.6); Neutrophils % (auto) 57.2 % (37.0-80.0); Nucleated Red Blood Cells % 0.1 %; Red Blood Cells 3.59 10^6/uL (4.0-5.20); Red Cell Distribution Width 13.6 % (11.8-14.3); White Blood Cell 5.7 10^3/uL (4.4-10.8)
[2022-04-09 05:32] LABS: Calcium 8.2 mg/dL (8.5-10.1); Potassium 3.6 mmol/L (3.5-5.1)
[2022-04-09 05:35] LABS: Albumin 3.3 g/dL (3.4-5.0); BUN/Creatinine Ratio 21.5
[2022-04-09 05:38] LABS: Bilirubin, Total 0.4 mg/dL (0.2-1.0); Total Protein 6.1 g/dL (6.4-8.2)
[2022-04-09 08:00] VITALS: BP 126/89
[2022-04-09] MEDS: CYANOCOBALAMIN 500 MCG TAB PO SCH (09:54)
[2022-04-09] MEDS: FOLIC ACID 1 MG TAB PO SCH (09:54)
[2022-04-09] MEDS: THIAMINE HCL 100 MG TAB PO SCH (09:54)
[2022-04-09] MEDS: OLANZapine 5 MG TAB PO SCH (09:55)
[2022-04-09] MEDS: cefTRIAXone 1GM/50ML D5W 50 ML IV SCH (09:55)
[2022-04-09] MEDS: ENOXAPARIN SOD 40 MG/0.4 ML SYRINGE SC SCH (09:55)
[2022-04-09] MEDS: FOLIC ACID 1 MG, MULTIPLE VITAMIN 10 ML, THIAMINE INJ 100 MG in SODIUM CHLORIDE 0.9% 1,... INJ SCH (12:52)
[2022-04-09 20:00] VITALS: BP 114/78
[2022-04-09 21:23] VITALS: BP 114/78
[2022-04-09] MEDS: ALPRAZolam 0.5 MG TAB PO PRN (23:33)
[2022-04-10] MEDS: ACETAMINOPHEN 325 MG TAB PO PRN ×4 (00:48→20:22)
[2022-04-10 04:29] VITALS: BP 114/78
[2022-04-10 09:00] VITALS: BP 99/56
[2022-04-10] MEDS: OLANZapine 5 MG TAB PO SCH ×2 (10:16→21:40)
[2022-04-10] MEDS: CIPROFLOXACIN HCL 500 MG TAB PO SCH ×2 (10:16→21:40)
[2022-04-10] MEDS: THIAMINE HCL 100 MG TAB PO SCH (10:16)
[2022-04-10] MEDS: FOLIC ACID 1 MG TAB PO SCH (10:16)
[2022-04-10] MEDS: SERTRALINE HCL 50 MG TAB PO SCH (10:17)
[2022-04-10] MEDS: ENOXAPARIN SOD 40 MG/0.4 ML SYRINGE SC SCH (10:19)
[2022-04-10] MEDS: CYANOCOBALAMIN 500 MCG TAB PO SCH (10:26)
[2022-04-10] MEDS: IPRATROPIUM BROM 0.5 MG/2.5ML INH SOL NEB PRN ×2 (11:22→21:21)
[2022-04-10] MEDS: ALBUTEROL SULF 2.5 MG/0.5ML(0.5%) NEB SOLN NEB PRN ×2 (11:23→21:21)
[2022-04-10] MEDS ORDERED: OLANZapine 5 MG TAB PO SCH (12:30)
[2022-04-10 13:00] VITALS: BP 120/84
[2022-04-10] MEDS: FOLIC ACID 1 MG, MULTIPLE VITAMIN 10 ML, THIAMINE INJ 100 MG in SODIUM CHLORIDE 0.9% 1,... INJ SCH (13:02)
[2022-04-10 17:00] VITALS: BP 136/95
[2022-04-10] MEDS: ALPRAZolam 0.5 MG TAB PO PRN (22:13)
[2022-04-11] MEDS: ACETAMINOPHEN 325 MG TAB PO PRN (02:21)
[2022-04-11 06:34] VITALS: BP 120/78
[2022-04-11 09:00] VITALS: BP 123/99
[2022-04-11] MEDS ORDERED: SERT50TA PO (09:00)
[2022-04-11] MEDS ORDERED: OLAN1TAB7 PO (09:00)
[2022-04-11] MEDS: FOLIC ACID 1 MG TAB PO SCH (10:52)
[2022-04-11] MEDS: CIPROFLOXACIN HCL 500 MG TAB PO SCH ×2 (10:52→21:13)
[2022-04-11] MEDS: CYANOCOBALAMIN 500 MCG TAB PO SCH (10:53)
[2022-04-11] MEDS: HYDROcodone-ACET 5/325MG TAB PO PRN ×2 (10:53→19:25)
[2022-04-11] MEDS: THIAMINE HCL 100 MG TAB PO SCH (10:54)
[2022-04-11] MEDS: OLANZapine 5 MG TAB PO SCH ×2 (10:54→21:12)
[2022-04-11] MEDS: SERTRALINE HCL 50 MG TAB PO SCH (10:55)
[2022-04-11] MEDS: ENOXAPARIN SOD 40 MG/0.4 ML SYRINGE SC SCH (10:56)
[2022-04-11] MEDS: guaiFENesin-DM 100/10mg/5ml SYR PO PRN ×2 (10:56→19:28)
[2022-04-11] MEDS: FOLIC ACID 1 MG, MULTIPLE VITAMIN 10 ML, THIAMINE INJ 100 MG in SODIUM CHLORIDE 0.9% 1,... INJ SCH ×2 (12:00→15:50)
[2022-04-11 13:00] VITALS: BP 132/91
[2022-04-11] MEDS: GABAPENTIN 100 MG CAP PO SCH ×3 (14:00→21:13)
[2022-04-11 17:00] VITALS: BP 131/95
[2022-04-11] MEDS: ALPRAZolam 0.5 MG TAB PO PRN (21:13)
[2022-04-11 22:00] VITALS: BP 140/89
[2022-04-12 05:00] VITALS: BP 107/74
[2022-04-12] MEDS: GABAPENTIN 100 MG CAP PO SCH (05:52)
[2022-04-12] MEDS: HYDROcodone-ACET 5/325MG TAB PO PRN ×2 (05:53→12:04)
[2022-04-12 09:00] VITALS: BP_SYST 131; BP_SYST 140; BP_DIAS 71; BP_DIAS 89
[2022-04-12] MEDS: ENOXAPARIN SOD 40 MG/0.4 ML SYRINGE SC SCH (10:00)
[2022-04-12] MEDS: CIPROFLOXACIN HCL 500 MG TAB PO SCH (10:09)
[2022-04-12] MEDS: CYANOCOBALAMIN 500 MCG TAB PO SCH (10:09)
[2022-04-12] MEDS: SERTRALINE HCL 50 MG TAB PO SCH (10:09)
[2022-04-12] MEDS: FOLIC ACID 1 MG TAB PO SCH (10:09)
[2022-04-12] MEDS: THIAMINE HCL 100 MG TAB PO SCH (10:09)
[2022-04-12] MEDS: OLANZapine 5 MG TAB PO SCH (10:09)
[2022-04-12] MEDS: FOLIC ACID 1 MG, MULTIPLE VITAMIN 10 ML, THIAMINE INJ 100 MG in SODIUM CHLORIDE 0.9% 1,... INJ SCH (12:00)
[2022-04-12 13:00] VITALS: BP 111/63
== END 2022-04-12 13:30 | disposition home health service (06) | DRG 52 ==
LOC: ER 05:04 → EDBD 05:04 → EDUNIT# 05:04 → TELE 12:20 → TELE-WESTW 04-07 15:20 → WEST WING 04-08 14:59 → TELE-WESTW 04-08 18:33
PROVIDERS: ADMIT Registered Nurse; ATTEND Nurse Practitioner Acute Care
DX: G92.8 Other toxic encephalopathy (principal); J39.8 Other specified diseases of upper respiratory tract; N30.90 Cystitis, unspecified without hematuria; E11.9 Type 2 diabetes mellitus without complications; E66.9 Obesity, unspecified; F23 Brief psychotic disorder; G62.9 Polyneuropathy, unspecified; I10 Essential (primary) hypertension; G89.29 Other chronic pain; Z20.822 Contact with and (suspected) exposure to COVID-19; J44.9 Chronic obstructive pulmonary disease, unspecified; F32.A Depression, unspecified; F41.9 Anxiety disorder, unspecified; M54.50 Low back pain, unspecified; R77.8 Other specified abnormalities of plasma proteins; Z79.899 Other long term (current) drug therapy; Z81.8 Family history of other mental and behavioral disorders; Z87.11 Personal history of peptic ulcer disease; Z91.14 Patient's other noncompliance with medication regimen; Z68.28 Body mass index [BMI] 28.0-28.9, adult
CPT/HCPCS: 36415; 70450; 71045; 80048; 80053; 80307; 80320; 81001; 82140; 82607; 82746; 83605; 83735; 84443; 84484; 85025; 85610; 85730; 87040; 87086; 87088; 87186; 87426; 92610; 93005; 93306; 93886; 94640; 95819; 96361; 96374; 96375; 97163; G0378; J0696

== ENCOUNTER 2023-04-28 12:00 | Emergency (ER) | payer MEDICAID ==
[~2023-04-28] VITALS: Ht 172.7 cm; Wt 68.2 kg
[~2023-04-28 12:00] MED LIST changes: +LORA-1123 PO; -LORA1TAB23 PO; +OLAN1TAB7 PO; +SERT50TA PO; +TRAZ-227 PO; -TRAZ50TA2 PO
[2023-04-28 13:05] LABS: Basophils # (auto) 0 10 ^3/uL (0-0.2); Basophils % (auto) 0.6 % (0.0-2.0); Eosinophils # (auto) 0.1 10 ^3/uL (0-0.8); Eosinophils % (auto) 0.7 % (0.0-7.0); Hematocrit 41.1 % (36.0-46.0); Hemoglobin 14.1 g/dL (12.2-16.2); Lymphocytes # (auto) 2.6 10 ^3/uL (0.4-5.4); Lymphocytes % (auto) 30.6 % (10.0-50.0); Mean Corpuscular Hemoglobin 33.2 pg (28.0-32.0); Mean Corpuscular Hgb Conc. 34.2 g/dL (32.0-36.0); Mean Corpuscular Volume 96.9 fL (80.0-100.0); Monocytes # (auto) 0.7 10 ^3/uL (0-1.3); Monocytes % (auto) 8.5 % (0.0-12.0); Neutrophils % (auto) 59.6 % (37.0-80.0); Nucleated Red Blood Cells % 0.2 %; Red Blood Cells 4.24 10^6/uL (4.0-5.20); Red Cell Distribution Width 15.6 % (11.8-14.3); White Blood Cell 8.5 10^3/uL (4.4-10.8)
[2023-04-28 13:28] LABS: Alanine Aminotransferase 79 U/L (7-40); Albumin 4.6 g/dL (3.2-4.8); Alkaline Phosphatase 106 U/L (46-116); Anion Gap 13 (5-15); Aspartate Aminotransferase 155 U/L (13-40); BUN/Creatinine Ratio 13.9 (10.0-20.0); Bilirubin, Total 0.7 mg/dL (0.2-1.0); Blood Alcohol 3.1 mg/dL (<10); Blood Urea Nitrogen 14 mg/dL (9-23); Calcium 8.6 mg/dL (8.5-10.1); Carbon Dioxide 28 mmol/L (20-30); Chloride 94 mmol/L (98-107); Glucose 117 mg/dL (74-106); Sodium 135 mmol/L (136-145); Total Protein 7.2 g/dL (5.7-8.2)
[2023-04-28] MEDS ORDERED: SODIUM CHLORIDE 0.9% 1,000 ML IVB ONE (13:45)
[2023-04-28] MEDS ORDERED: PANTOPRAZOLE 40 MG TAB PO ONE (13:45)
[2023-04-28] MEDS ORDERED: DONNATAL 5ml ORAL Elix (BELLADONNA ALK-PHENOBARB) PO ONE (13:45)
[2023-04-28] MEDS ORDERED: MAALOX PLUS or MAALOX 30 ML PO ONE (13:45)
[2023-04-28 13:46] LABS: Potassium 2.5 mmol/L (3.5-5.1)
[2023-04-28] MEDS ORDERED: POTASSIUM EFFERVESENT TAB 25 MEQ PO ONE (14:00)
[2023-04-28 14:01] LABS: Magnesium 1.4 mg/dL (1.6-2.6)
[2023-04-28] MEDS: PROMETHAZINE HCL 25 MG/ML 1ML IV PRN ×2 (15:56→21:44)
[2023-04-28] MEDS ORDERED: POTASSIUM CHL 10 Meq TABLET PO ONE ×2 (16:15→20:30)
[2023-04-28 16:17] VITALS: PULSE 106; RESP 20; O2SAT 97
[2023-04-28] MEDS ORDERED: SODIUM CHLORIDE 0.9% 1,000 ML IV ONE (20:45)
[2023-04-28 21:01] LABS: Urine Bacteria NONE SEEN /hpf (None Seen); Urine Blood Negative /uL (Negative); Urine Clarity HAZY (Clear); Urine Color Yellow (Yellow); Urine Hyaline Cast FEW /lpf (0 - 2); Urine Mucus FEW (None Seen); Urine Protein, UAD 1+ (Negative); Urine Specific Gravity 1.037 (1.001-1.035); Urine WBC 8 /hpf (0 - 5); Urine pH 6.5 (5.0-8.0)
[2023-04-28 21:08] LABS: Amphetamine Screen, Urine Neg (NEGATIVE); Barbiturate Scree,Urine Neg (NEGATIVE); Benzodiazephine Screen, Urine Neg (NEGATIVE); Cannabinoid Screen, Urine Neg (NEGATIVE); Cocaine Screen, Urine Neg (NEGATIVE); Opiate Scree,Urine Neg (NEGATIVE); Phencyclidine Screen, Urine Neg (NEGATIVE)
[2023-04-28] MEDS ORDERED: ZOFR4T PO (21:57)
[2023-04-28] MEDS ORDERED: OMEP20TA PO (21:57)
[2023-04-28] MEDS ORDERED: CHL25C PO (21:57)
[2023-04-28] MEDS ORDERED: ALUMCHW6 PO (21:57)
[2023-04-29] MEDS: MAGNESIUM SULFATE 1GM/100ML 100 ML IV SCH ×2 (00:26→01:23)
[2023-04-29] MEDS ORDERED: MAGNESIUM SULFATE 1GM/100ML 100 ML IV ONE (01:25)
[2023-04-29 06:00] VITALS: BP 105/78; PULSE 108; RESP 18; TEMP 98
== END 2023-04-29 06:16 | disposition home or self-care (01) ==
LOC: EDBD 12:00 → ER 12:00
DX: F10.229 Alcohol dependence with intoxication, unspecified (principal); F10.239 Alcohol dependence with withdrawal, unspecified; K29.20 Alcoholic gastritis without bleeding; E87.6 Hypokalemia; R74.8 Abnormal levels of other serum enzymes; E83.42 Hypomagnesemia; N30.90 Cystitis, unspecified without hematuria; F32.9 Major depressive disorder, single episode, unspecified; J45.909 Unspecified asthma, uncomplicated; Z79.899 Other long term (current) drug therapy; Y90.8 Blood alcohol level of 240 mg/100 ml or more
CPT/HCPCS: 36415; 71046; 80053; 80307; 80320; 81001; 83690; 83735; 84484; 85025; 93005; 96361; 96365; 96375; 99285; J2550; J3475; J7030

== ENCOUNTER 2023-04-30 15:33 | Inpatient (IN) | payer MEDICAID ==
[~2023-04-30] VITALS: Ht 167.6 cm; Wt 71.3 kg
[~2023-04-30 15:33] MED LIST changes: +ALUMCHW6 PO; +CHL25C PO; +OMEP20TA PO; +ZOFR4T PO
[2023-04-30] MEDS ORDERED: ONDANSETRON HCL 4 MG/2 ML VIAL IV ONE ×2 (16:00→22:15)
[2023-04-30] MEDS ORDERED: SODIUM CHLORIDE 0.9% 1,000 ML IV ONE (16:00)
[2023-04-30 16:24] LABS: Basophils # (auto) 0 10 ^3/uL (0-0.2); Basophils % (auto) 0.5 % (0.0-2.0); Eosinophils # (auto) 0.2 10 ^3/uL (0-0.8); Eosinophils % (auto) 3.1 % (0.0-7.0); Hematocrit 36.8 % (36.0-46.0); Hemoglobin 12.2 g/dL (12.2-16.2); Lymphocytes # (auto) 1.5 10 ^3/uL (0.4-5.4); Lymphocytes % (auto) 27.4 % (10.0-50.0); Mean Corpuscular Hemoglobin 32.6 pg (28.0-32.0); Mean Corpuscular Hgb Conc. 33.2 g/dL (32.0-36.0); Mean Corpuscular Volume 98.1 fL (80.0-100.0); Monocytes # (auto) 0.4 10 ^3/uL (0-1.3); Monocytes % (auto) 7.1 % (0.0-12.0); Neutrophils # (auto) 3.4 10 ^3/uL (1.6-8.6); Neutrophils % (auto) 61.9 % (37.0-80.0); Nucleated Red Blood Cells % 0.1 %; Red Blood Cells 3.75 10^6/uL (4.0-5.20); Red Cell Distribution Width 16.1 % (11.8-14.3); White Blood Cell 5.6 10^3/uL (4.4-10.8)
[2023-04-30 16:47] LABS: Alanine Aminotransferase 35 U/L (7-40); Albumin 3.6 g/dL (3.2-4.8); Alkaline Phosphatase 75 U/L (46-116); Anion Gap 8 (5-15); Aspartate Aminotransferase 35 U/L (13-40); Bilirubin, Total 0.2 mg/dL (0.2-1.0); Blood Alcohol < 3.0 mg/dL (<10); Blood Urea Nitrogen 6 mg/dL (9-23); Calcium 8.1 mg/dL (8.7-10.4); Carbon Dioxide 26 mmol/L (20-30); Chloride 107 mmol/L (98-107); Glucose 86 mg/dL (74-106); Lipase 71 U/L (12-53); Potassium 3.2 mmol/L (3.5-5.1); Sodium 141 mmol/L (136-145); Total Protein 5.8 g/dL (5.7-8.2)
[2023-04-30 17:07] VITALS: PULSE 100; RESP 15; O2SAT 95
[2023-04-30 19:05] LABS: COVID19 ANTIGEN SOFIA FIA NEGATIVE (NEGATIVE)
[2023-04-30 19:06] LABS: Rapid Influenza A Negative (Negative); Rapid Influenza B Negative (Negative)
[2023-04-30 19:30] VITALS: PULSE 100; RESP 14; O2SAT 94
[2023-04-30 23:37] LABS: Urine Bacteria FEW /hpf (None Seen); Urine Blood Negative /uL (Negative); Urine Clarity Clear (Clear); Urine Color Colorless (Yellow); Urine Protein, UAD Negative (Negative); Urine Specific Gravity 1.007 (1.001-1.035); Urine Urobilinogen Normal (Negative); Urine WBC 2 /hpf (0 - 5)
[2023-04-30] MEDS ORDERED: PANTOPRAZOLE 40 MG/10 ML VIAL INJ IV ONE (23:45)
[2023-04-30 23:49] LABS: Amphetamine Screen, Urine Neg (NEGATIVE); Barbiturate Scree,Urine Neg (NEGATIVE); Benzodiazephine Screen, Urine Pos (NEGATIVE); Cannabinoid Screen, Urine Neg (NEGATIVE); Cocaine Screen, Urine Neg (NEGATIVE); Opiate Scree,Urine Neg (NEGATIVE); Phencyclidine Screen, Urine Neg (NEGATIVE)
[2023-05-01] MEDS ORDERED: NITROFURANTOIN 100 mg CAP PO ONE (01:15)
[2023-05-01] MEDS ORDERED: DOCUSATE SOD 100 MG CAP PO PRN (02:00)
[2023-05-01] MEDS ORDERED: cefTRIAXone 1GM/50ML D5W 50 ML IV ONE (02:00)
[2023-05-01 02:14] VITALS: BP 101/66; PULSE 93; RESP 20; O2SAT 96
[2023-05-01] MEDS ORDERED: ALBUTEROL SULF 2.5 MG/0.5ML(0.5%) NEB SOLN NEB PRN (02:15)
[2023-05-01] MEDS: POTASSIUM EFFERVESENT TAB 25 MEQ GT ONE ×2 (02:48→03:25)
[2023-05-01] MEDS: POTASSIUM CHL 20MEQ/100ML 100 ML IV SCH ×3 (02:48→06:31)
[2023-05-01] MEDS ORDERED: NITROGLYCERIN 0.4 MG SL TAB SL PRN (03:00)
[2023-05-01] MEDS ORDERED: MORPHINE SULFATE INJ 2 MG/ml SYRG IV PRN (03:00)
[2023-05-01] MEDS: SODIUM CHLOR 0.9% PF (SALINE LOCK) 10ML VIAL/SYR IV SCH ×3 (06:07→21:31)
[2023-05-01 07:24] VITALS: RESP 14; O2SAT 98
[2023-05-01 07:30] VITALS: O2SAT 96
[2023-05-01 07:32] LABS: Basophils # (auto) 0 10 ^3/uL (0-0.2); Basophils % (auto) 0.4 % (0.0-2.0); Eosinophils # (auto) 0.5 10 ^3/uL (0-0.8); Eosinophils % (auto) 8.9 % (0.0-7.0); Hematocrit 33.2 % (36.0-46.0); Hemoglobin 11.1 g/dL (12.2-16.2); Lymphocytes # (auto) 2.3 10 ^3/uL (0.4-5.4); Lymphocytes % (auto) 40.6 % (10.0-50.0); Mean Corpuscular Hemoglobin 32.8 pg (28.0-32.0); Mean Corpuscular Hgb Conc. 33.6 g/dL (32.0-36.0); Mean Corpuscular Volume 97.8 fL (80.0-100.0); Monocytes # (auto) 0.4 10 ^3/uL (0-1.3); Monocytes % (auto) 7.1 % (0.0-12.0); Neutrophils # (auto) 2.4 10 ^3/uL (1.6-8.6); Nucleated Red Blood Cells % 0.3 %; Red Blood Cells 3.39 10^6/uL (4.0-5.20); Red Cell Distribution Width 16.1 % (11.8-14.3); White Blood Cell 5.6 10^3/uL (4.4-10.8)
[2023-05-01 07:40] LABS: Alanine Aminotransferase 25 U/L (7-40); Albumin 3.1 g/dL (3.2-4.8); Alkaline Phosphatase 58 U/L (46-116); Anion Gap 9 (5-15); Aspartate Aminotransferase 24 U/L (13-40); Bilirubin, Total 0.3 mg/dL (0.2-1.0); Calcium 7.7 mg/dL (8.5-10.1); Carbon Dioxide 22 mmol/L (20-30); Chloride 112 mmol/L (98-107); Glucose 87 mg/dL (74-106); Potassium 3.1 mmol/L (3.5-5.1); Sodium 143 mmol/L (136-145); Total Protein 5.1 g/dL (5.7-8.2)
[2023-05-01 07:46] LABS: BUN/Creatinine Ratio 7.4 (10.0-20.0); Blood Urea Nitrogen < 5 mg/dL (9-23)
[2023-05-01] MEDS: FAMOTIDINE (10MG/ML) 2ML VL IV SCH ×2 (10:32→21:31)
[2023-05-01] MEDS: ONDANSETRON HCL 4 MG/2 ML VIAL IV PRN (18:35)
[2023-05-01 18:43] LABS: Hematocrit 38.7 % (36.0-46.0); Hemoglobin 12.7 g/dL (12.2-16.2)
[2023-05-01 18:54] VITALS: O2SAT 97
[2023-05-01 23:05] VITALS: BP 116/66; PULSE 90; RESP 18; TEMP 98.6; O2SAT 97
[2023-05-01 23:28] VITALS: PULSE 90
[2023-05-01] MEDS ORDERED: QUET1TAB11 PO (23:58)
[2023-05-01] MEDS ORDERED: DIPH-599 PO (23:58)
[2023-05-01] MEDS ORDERED: MEGE20TA3 PO (23:58)
[2023-05-01] MEDS ORDERED: FOLI-119 PO (23:58)
[2023-05-01] MEDS ORDERED: SUCR1SUS26 PO (23:58)
[2023-05-02] VITALS (9 sets, daily range): BP systolic 105–127; BP diastolic 65–98; PULSE 80–115; RESP 16–20; TEMP 98.4–98.5; O2SAT 94–98
[2023-05-02 05:56] LABS: Basophils # (auto) 0.1 10 ^3/uL (0-0.2); Hemoglobin 11.7 g/dL (12.2-16.2); Mean Corpuscular Volume 101.6 fL (80.0-100.0); White Blood Cell 7.1 10^3/uL (4.4-10.8)
[2023-05-02 05:58] LABS: Basophils % (auto) 0.8 % (0.0-2.0); Eosinophils # (auto) 0.6 10 ^3/uL (0-0.8); Eosinophils % (auto) 8.8 % (0.0-7.0); Hematocrit 35.4 % (36.0-46.0); Lymphocytes % (auto) 42.7 % (10.0-50.0); Mean Corpuscular Hemoglobin 33.6 pg (28.0-32.0); Mean Corpuscular Hgb Conc. 33.1 g/dL (32.0-36.0); Monocytes # (auto) 0.5 10 ^3/uL (0-1.3); Monocytes % (auto) 7.1 % (0.0-12.0); Neutrophils # (auto) 2.9 10 ^3/uL (1.6-8.6); Neutrophils % (auto) 40.6 % (37.0-80.0); Red Blood Cells 3.48 10^6/uL (4.0-5.20); Red Cell Distribution Width 16.6 % (11.8-14.3)
[2023-05-02] MEDS: SODIUM CHLOR 0.9% PF (SALINE LOCK) 10ML VIAL/SYR IV SCH ×3 (06:00→22:00)
[2023-05-02 06:24] LABS: Alanine Aminotransferase 22 U/L (7-40); Albumin 3.3 g/dL (3.2-4.8); Alkaline Phosphatase 61 U/L (46-116); Anion Gap 8 (5-15); Aspartate Aminotransferase 23 U/L (13-40); Bilirubin, Total 0.3 mg/dL (0.2-1.0); Calcium 8.5 mg/dL (8.7-10.4); Carbon Dioxide 20 mmol/L (20-30); Chloride 112 mmol/L (98-107); Glucose 89 mg/dL (74-106); Potassium 3.8 mmol/L (3.5-5.1); Sodium 140 mmol/L (136-145); Total Protein 5.6 g/dL (5.7-8.2)
[2023-05-02 06:26] LABS: BUN/Creatinine Ratio 6.4 (10.0-20.0); Blood Urea Nitrogen < 5 mg/dL (9-23)
[2023-05-02] MEDS: FAMOTIDINE (10MG/ML) 2ML VL IV SCH (10:18)
[2023-05-02] MEDS ORDERED: GADOTERATE MEG 10 MMOL/20ml INJ (0.5MMOL/ml) IV ONE (10:19)
[2023-05-02] MEDS: cefTRIAXone 1GM/50ML D5W 50 ML IV SCH (11:37)
[2023-05-02] MEDS: ONDANSETRON HCL 4 MG/2 ML VIAL IV PRN ×2 (15:04→20:45)
[2023-05-02] MEDS: HYDROcodone-ACET 5/325MG TAB PO PRN (20:45)
[2023-05-03] VITALS (8 sets, daily range): BP systolic 86–111; BP diastolic 50–78; PULSE 65–111; RESP 17–19; TEMP 97.7–98.4; O2SAT 90–100
[2023-05-03] MEDS: SODIUM CHLOR 0.9% PF (SALINE LOCK) 10ML VIAL/SYR IV SCH ×3 (06:21→22:00)
[2023-05-03 08:42] LABS: Alanine Aminotransferase 20 U/L (7-40); Albumin 3.1 g/dL (3.2-4.8); Alkaline Phosphatase 48 U/L (46-116); Anion Gap 8 (5-15); Aspartate Aminotransferase 14 U/L (13-40); Bilirubin, Direct 0.1 mg/dL (<0.3); Calcium 8.7 mg/dL (8.5-10.1); Carbon Dioxide 22 mmol/L (20-30); Chloride 114 mmol/L (98-107); Glucose 86 mg/dL (74-106); Potassium 3.4 mmol/L (3.5-5.1); Sodium 144 mmol/L (136-145)
[2023-05-03 08:43] LABS: Bilirubin, Total 0.2 mg/dL (0.2-1.0); Total Protein 5.1 g/dL (5.7-8.2)
[2023-05-03] MEDS: PANTOPRAZOLE 40 MG/10 ML VIAL INJ IV SCH (08:46)
[2023-05-03] MEDS: cefTRIAXone 1GM/50ML D5W 50 ML IV SCH (08:46)
[2023-05-03 08:52] LABS: BUN/Creatinine Ratio 7.9 (10.0-20.0); Blood Urea Nitrogen < 5 mg/dL (9-23)
[2023-05-03 09:26] LABS: Lipase 50 U/L (12-53)
[2023-05-03] MEDS: ONDANSETRON HCL 4 MG/2 ML VIAL IV PRN ×2 (11:29→20:43)
[2023-05-03] MEDS: HYDROcodone-ACET 5/325MG TAB PO PRN ×2 (11:29→20:44)
[2023-05-03] MEDS ORDERED: POTASSIUM CHL 20 Meq TABLET PO ONE (11:30)
[2023-05-03] MEDS: SUCRALFATE 1 GM/10 ML ORAL SUSP PO SCH ×3 (13:39→21:35)
[2023-05-03] MEDS: traZODone HCL 50 MG TAB PO SCH (21:35)
[2023-05-03] MEDS: OLANZapine 5 MG TAB PO SCH (21:36)
[2023-05-03] MEDS: MIRTAZAPINE 30 MG TAB PO SCH (21:36)
[2023-05-03] MEDS: MEGESTROL ACETATE 20 MG TAB PO SCH (21:38)
[2023-05-04] VITALS (7 sets, daily range): BP systolic 81–117; BP diastolic 56–88; PULSE 71–118; RESP 16–19; TEMP 97.9–98.4; O2SAT 93–100
[2023-05-04] MEDS ORDERED: ALBUMIN 5% 250 ML IV ONE ×2 (00:30→00:47)
[2023-05-04] MEDS: SUCRALFATE 1 GM/10 ML ORAL SUSP PO SCH ×4 (05:50→21:29)
[2023-05-04] MEDS: SODIUM CHLOR 0.9% PF (SALINE LOCK) 10ML VIAL/SYR IV SCH ×3 (05:51→21:31)
[2023-05-04] MEDS ORDERED: SODIUM CHLORIDE 0.9% 500 ML IV ONE (06:15)
[2023-05-04] MEDS: PANTOPRAZOLE 40 MG/10 ML VIAL INJ IV SCH (09:12)
[2023-05-04] MEDS: MONTELUKAST SODIUM 10 MG TAB PO SCH (09:13)
[2023-05-04] MEDS: OLANZapine 5 MG TAB PO SCH ×2 (09:13→21:30)
[2023-05-04] MEDS: cefTRIAXone 1GM/50ML D5W 50 ML IV SCH (09:13)
[2023-05-04] MEDS ORDERED: SERTRALINE HCL 50 MG TAB PO SCH (10:00)
[2023-05-04] MEDS ORDERED: QUEtiapine FUMARATE 25 MG TAB PO SCH (10:00)
[2023-05-04] MEDS: MEGESTROL ACETATE 20 MG TAB PO SCH ×2 (11:05→21:31)
[2023-05-04] MEDS: MIRTAZAPINE 30 MG TAB PO SCH (21:30)
[2023-05-04] MEDS: ONDANSETRON HCL 4 MG/2 ML VIAL IV PRN (21:30)
[2023-05-04] MEDS: traZODone HCL 50 MG TAB PO SCH (21:30)
[2023-05-04] MEDS: HYDROcodone-ACET 5/325MG TAB PO PRN (21:40)
[2023-05-04] MEDS: ACETAMINOPHEN 325 MG TAB PO PRN (23:13)
[2023-05-05] VITALS (7 sets, daily range): BP systolic 84–115; BP diastolic 52–84; PULSE 83–113; RESP 18; TEMP 98.3–98.8; O2SAT 94–96
[2023-05-05] MEDS: SUCRALFATE 1 GM/10 ML ORAL SUSP PO SCH ×4 (06:05→20:47)
[2023-05-05] MEDS: SODIUM CHLOR 0.9% PF (SALINE LOCK) 10ML VIAL/SYR IV SCH ×3 (06:06→20:47)
[2023-05-05] MEDS: cefTRIAXone 1GM/50ML D5W 50 ML IV SCH (09:13)
[2023-05-05] MEDS: MEGESTROL ACETATE 20 MG TAB PO SCH ×2 (10:00→20:48)
[2023-05-05] MEDS: PANTOPRAZOLE 40 MG/10 ML VIAL INJ IV SCH (10:37)
[2023-05-05] MEDS: MONTELUKAST SODIUM 10 MG TAB PO SCH (10:37)
[2023-05-05] MEDS: OLANZapine 5 MG TAB PO SCH ×2 (10:37→20:47)
[2023-05-05] MEDS: HYDROcodone-ACET 5/325MG TAB PO PRN (20:27)
[2023-05-05] MEDS: ONDANSETRON HCL 4 MG/2 ML VIAL IV PRN (20:46)
[2023-05-05] MEDS: MIRTAZAPINE 30 MG TAB PO SCH (20:47)
[2023-05-05] MEDS: traZODone HCL 50 MG TAB PO SCH (20:47)
[2023-05-06] VITALS (7 sets, daily range): BP systolic 93–126; BP diastolic 61–86; PULSE 80–99; RESP 16–21; TEMP 98.6–99; O2SAT 94–98
[2023-05-06] MEDS: SODIUM CHLOR 0.9% PF (SALINE LOCK) 10ML VIAL/SYR IV SCH ×3 (06:00→21:14)
[2023-05-06] MEDS: SUCRALFATE 1 GM/10 ML ORAL SUSP PO SCH ×4 (06:52→21:09)
[2023-05-06] MEDS: cefTRIAXone 1GM/50ML D5W 50 ML IV SCH (09:01)
[2023-05-06] MEDS: ACETAMINOPHEN 325 MG TAB PO PRN ×2 (09:02→15:21)
[2023-05-06] MEDS: OLANZapine 5 MG TAB PO SCH ×2 (10:13→21:11)
[2023-05-06] MEDS: MONTELUKAST SODIUM 10 MG TAB PO SCH (10:13)
[2023-05-06] MEDS: PANTOPRAZOLE 40 MG/10 ML VIAL INJ IV SCH (10:13)
[2023-05-06] MEDS: MEGESTROL ACETATE 20 MG TAB PO SCH ×2 (10:13→21:11)
[2023-05-06] MEDS: HYDROcodone-ACET 5/325MG TAB PO PRN (17:37)
[2023-05-06] MEDS: traZODone HCL 50 MG TAB PO SCH (21:11)
[2023-05-06] MEDS: MIRTAZAPINE 30 MG TAB PO SCH (21:12)
[2023-05-07] MEDS: HYDROcodone-ACET 5/325MG TAB PO PRN (01:47)
[2023-05-07] MEDS: ONDANSETRON HCL 4 MG/2 ML VIAL IV PRN (01:57)
[2023-05-07] MEDS ORDERED: diphenhdrAMINE HCL 25 MG CAP PO PRN (03:15)
[2023-05-07 05:00] VITALS: BP 104/72; PULSE 73; RESP 16; TEMP 98.5; O2SAT 95
[2023-05-07] MEDS: SODIUM CHLOR 0.9% PF (SALINE LOCK) 10ML VIAL/SYR IV SCH ×2 (05:39→14:00)
[2023-05-07] MEDS: SUCRALFATE 1 GM/10 ML ORAL SUSP PO SCH ×2 (05:39→12:00)
[2023-05-07 09:00] VITALS: BP 100/65; PULSE 91; RESP 18; TEMP 98; O2SAT 95
[2023-05-07] MEDS: cefTRIAXone 1GM/50ML D5W 50 ML IV SCH (09:32)
[2023-05-07] MEDS: ACETAMINOPHEN 325 MG TAB PO PRN (09:42)
[2023-05-07] MEDS: OLANZapine 5 MG TAB PO SCH (09:49)
[2023-05-07] MEDS: PANTOPRAZOLE 40 MG/10 ML VIAL INJ IV SCH (09:49)
[2023-05-07] MEDS: MONTELUKAST SODIUM 10 MG TAB PO SCH (09:49)
[2023-05-07] MEDS: MEGESTROL ACETATE 20 MG TAB PO SCH (09:49)
[2023-05-07 13:00] VITALS: BP 104/64; PULSE 73; RESP 18; TEMP 98.2; O2SAT 96
[2023-05-07 14:04] VITALS: TEMP 36.8
== END 2023-05-07 14:00 | disposition home or self-care (01) | DRG 422 ==
LOC: EDBD 15:33 → ER 15:33 → TELE 05-01 03:01 → TELE-WESTW 05-01 22:24
PROVIDERS: ADMIT Nurse Practitioner Family; ATTEND Internal Medicine
DX: E87.6 Hypokalemia (principal); E86.0 Dehydration; R45.851 Suicidal ideations; K86.2 Cyst of pancreas; I95.9 Hypotension, unspecified; F33.2 Major depressive disorder, recurrent severe without psychotic features; N39.0 Urinary tract infection, site not specified; F10.239 Alcohol dependence with withdrawal, unspecified; I10 Essential (primary) hypertension; F41.9 Anxiety disorder, unspecified; J45.909 Unspecified asthma, uncomplicated; Z20.822 Contact with and (suspected) exposure to COVID-19; Z56.0 Unemployment, unspecified; Z87.11 Personal history of peptic ulcer disease; Z91.51 Personal history of suicidal behavior
CPT/HCPCS: 36415; 74176; 74183; 80053; 80076; 80307; 80320; 81001; 81025; 82270; 82784; 83690; 83880; 84484; 85014; 85018; 85025; 86301; 87086; 87426; 87804; 93005; 94640; 96374; 97110; 97116; 97163; 97530; C9113; G0378; J0696; J2405; J3480; J3490

== ENCOUNTER 2025-03-07 13:25 | Emergency (ER) | payer MEDICAID ==
[~2025-03-07] VITALS: Ht 167.6 cm; Wt 65.9 kg
[~2025-03-07 13:25] MED LIST changes: +DIPH-751 PO; +FOLI-119 PO; +MEGE20TA3 PO; +QUET1TAB11 PO; +SUCR1SUS26 PO
--- NOTE | 2025-03-07 14:33 | DVH ---
EXAM: XY L FOOT 3 VIEW XRAY CLINICAL INDICATION: FALL TECHNIQUE: XY L FOOT 3 VIEW XRAY Comparison: None FINDINGS/IMPRESSION: Surgical pin in the 1st digit. Displaced fracture of the base of the 2nd metatarsal. Nondisplaced fra cture 5th metatarsal. Postoperative changes of the 3rd metatarsal. Lisfranc injury can not be exclude d.
--- NOTE | 2025-03-07 14:42 | ED.PDOC ---
Musculoskeletal HPI Comments THIS IS A 49 YEAR-OLD FEMALE, WITH A PMHX OF DYSKINESIA, PRESENTS TO THE ED VIA WHEELCHAIR WITH A CHIEF COMPLAINT OF L FOOT PAIN WITH ASSOCIATED SWELLING AND BRUISING S/P FALL X2 DAYS AGO. PATIENT HAS NO FURTHER COMPLAINTS AT THIS TIME AND OTHERWISE DENIES FURTHER ASSOCIATED SYMPTOMS OF HEAD TRAUMA, LOC, N/V, FEVER, CHILLS, OR DIZZINESS. PATIENT IS ALERT, ORIENTED X 4, AND HAS STEADY GAIT. Chief Complaint: Fall Injury Time Seen by MD: 14:44 Primary Care Provider: NATALIE Reviewed Notes: Nurses Notes, Medications, Allergies Allergies: Coded Allergies: NO KNOWN ALLERGIES (Unverified , 11/16/18) Home Meds Active Scripts Cephalexin Monohydrate (Cephalexin) 500 Mg Cap, 1 CAP PO TID, #30 CAP Prov:ROBERT HANKINS 03/07/25 Aluminum Hydroxide-Mag Carb (Gaviscon Extra Strength) 1 Chw Chw, 1 CHW PO QID for 5 Days, #20 TAB.CHEW Prov:EVERARDO GALVEZ MD 04/28/23 Ondansetron Odt 4MG Tab (ZOFRAN PO) 4 Mg Tb, 4 MG PO TID for 5 Days, #15 TAB ODT TAB-DISSOLVE IN MOUTH, THEN SWALLOW Prov:EVERARDO GALVEZ MD 04/28/23 Omeprazole (Gnp Omeprazole) 20 Mg Tab, 1 TAB PO BID for 15 Days, #30 TAB 1 Refill Prov:EVERARDO GALVEZ MD 04/28/23 Chlordiazepoxide Hcl (Librium) 25 Mg Cp, 25 MG PO TID for 5 Days, #15 CAP Prov:EVERARDO GALVEZ MD 04/28/23 Sertraline Hcl (Zoloft) 50 Mg Tab, 50 MG PO DAILY for 30 Days, #30 TAB Prov:SHELBY MILLS REPAIRER SWITCHGEAR 04/11/22 Olanzapine (OLANZAPINE) 5 Mg Tab, 5 MG PO BID for 60 Days, #120 TAB Prov:SHELBY MILLS REPAIRER SWITCHGEAR 04/11/22 Reported Medications Quetiapine Fumerate (QUETIAPINE FUMARATE) 25 Mg Tab, 1 TAB PO 05/01/23 Folic Acid (Folic Acid) 1 Mg Tab, 1 TAB PO DAILY 05/01/23 Sucralfate (CARAFATE SUSP) 1 Gm/10 Ml Ss, ML PO 05/01/23 Diphenhydramine Hcl (Banophen) 25 Mg Cap, 2 PO BID 05/01/23 Megestrol Acetate (Megace) 20 Mg Tb, 1 TAB PO BID 05/01/23 Albuterol Sulfate (VENTOLIN MDI) 90 Mcg Ih, 90 MCG IN Q6HP PRN for SHORTNESS OF BREATH for 30 Days, MCG 04/23/19 Venlafaxine Hcl (Venlafaxine Hcl Er) 75 Mg Cap, 75 MG PO DAILY, CAP 04/23/19 Trazodone Hcl (Trazodone Hcl) 50 Mg Tab, 50 MG PO HS, MG 04/23/19 Ranitidine Hcl (HM ACID SENIOR APPLICATION SECURITY CONSULTANT) 150 Mg Tab, 150 MG PO, TAB 04/23/19 Potassium Chloride (Klor-Con M20) 20 Meq Tab, 20 MEQ PO Q6HR, TAB 04/23/19 Hydroxyzine Hcl (Hydroxyzine Hcl) 50 Mg Tab, 50 MG PO HS for 30 Days, MG 04/22/19 Ondansetron (Zofran) 4 Mg Tab, 4 MG PO TID, MG 04/22/19 Lorazepam (Lorazepam) 1 Mg Tab, 1 MG PO HS, TAB 04/22/19 Lamotrigine (LAMICTAL) 100 Mg Tab, 100 MG OR BID, TAB 04/22/19 Venlafaxine Hydrochloride (Effexor Xr) 75 Mg Cap, 1 CAP PO DAILY, #30 CAP 2 Refills 04/22/19 Montelukast Sodium (SINGULAIR TABLET) 10 Mg Tb, 1 TAB PO DAILY, #90 TAB 3 Refills 01/07/16 Information Source: Patient Mode of Arrival: Wheelchair Location: Left Extremity Location: Foot Timing: Days Prehospital treatment: None Severity: Moderate Able to Move Extremity: No Bear Weight: No Pain: Moderate Circumstances: Fall Onset of Symptoms: After Trauma Symptoms: Swelling, Pain Associated signs and symptoms: Swelling, Foot pain Past Medical History PAST MEDICAL HISTORY: Anemia, Anxiety, Asthma, Depression, PUD 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 all ALGEBRA TEACHER Hx Family History Family History: Reviewed,noncontributory to illness, Family hx of heart radha Social History Smoker: Non-Smoker Alcohol: Heavy Drugs: Denies Drug Use Lives In: Home Constitutional: denies: chills, diaphoresis, fatigue, fever, malaise, sweats, weakness, others EENTM: denies: blurred vision, double vision, ear bleeding, ear discharge, ear drainage, ear pain, ear ringing, eye pain, eye redness, hearing loss, mouth pain, mouth swelling, nasal discharge, nose bleeding, nose congestion, nose pain, photophobia, tearing, throat pain, throat swelling, voice changes, others Respiratory: denies: cough, hemoptysis, orthopnea, SOB at rest, shortness of breath, SOB with excertion, stridor, wheezing, others Cardiovascular: denies: chest pain, dizzy spells, diaphoresis, Dyspnea on exertion, edema, irregular heart beat, left arm pain, lightheadedness, palpitations, PND, syncope, others Gastrointestinal: denies: abdomen distended, abdominal pain, blood streaked bowels, constipated, diarrhea, dysphagia, difficulty swallowing, hematemesis, melena, nausea, poor appetite, poor fluid intake, rectal bleeding, rectal pain, vomiting, others Genitourinary: denies: abnormal vagina bleeding, burning, dyspareunia, dysuria, flank pain, frequency, hematuria, incontinence, pain, , vagina discharge, urgency, others Neurological: denies: dizziness, fainting, headache, left sided numbness, left sided weakness, numbness, paresthesia, pre-existing deficit, right sided numbness, right sided weakness, seizure, speech problems, tingling, tremors, weakness, others Musculoskeletal: reports: joint pain, joint swelling; denies: back pain, gout, muscle pain, muscle stiffness, neck pain, others Integumetry: reports: bruises; denies: change in color, change in hair/nails, dryness, laceration, lesions, lumps, rash, wounds, others Allergic/Immunocompromised: denies: Difficulty Healing, Frequent Infections, Hives, Itching, others Hematologic/Lymphatic: denies: anemia, blood clots, easy bleeding, easy bruising, swollen glands, others Endocrine: denies: excessive hunger, excessive sweating, excessive thirst, excessive urination, flushing, intolerance to cold, intolerance to heat, unexplained weight gain, unexplained weight loss, others Psychiatric: denies: anxiety, bipolar disorder, depression, hopeless, panic disorder, schizophrenia, sleepless, suicidal, others All Other Systems: Reviewed and Negative Physical Exam General Appearance: No Apparent Distress, Normal HEENT: Normal ENT Inspection, PERRL/EOMI, Pharynx Normal, TMs Normal Neck: Full Range of Motion, Non-Tender, Normal, Normal Inspection Respiratory: Chest Non-Tender, Lungs Clear, No Accessory Muscle Use, No Respiratory Distress, Normal Breath Sounds Cardiovascular: No Edema, No JVD, No Murmur, No Gallop, Normal Peripheral Pulses, Regular Rate/Rhythm Breast Exam: Deferred Gastrointestinal: No Organomegaly, Non Tender, No Pulsatile Mass, Normal Bowel Sounds, Soft Genitalia: Deferred Pelvic: Deferred Rectal: Deferred Extremities: Decreased range of motion, No calf tenderness, Normal capillary refill, No pedal edema, Swelling (BONY TENDERNESS AND SWELLING ON LEFT DORSAL FO OT, NO DEFORMITY. ), Tender (AND SWELLING WITH A SMALL ABRASION ON LEFT DORSAL FOOT, NO BLEEDING. NEUROVASCULAR INTACT. ) Musculoskeletal : Apperance: Normal Neurologic: Alert, project associate II-XII nml as Tested, No Motor Deficits, Normal Affect, Normal Mood, No Sensory Deficits Cerebellar Function: Normal Reflexes: Normal Skin: Bruises (LEFT DORSAL FOOT. ), Dry, Normal Color, Warm, Wounds (A SMALL ABRASION AND CONTUSION ON LEFT DORSAL FOOT. ) Peripheral Pulses: 2+ carotid (R), 2+ carotid (L), 2+ dorsalis pedis (R), 2+ dorsalis pedis (L) Lymphatic: No Adenopathy Was a procedure done? Was a procedure done?: No Differential Diagnosis EXT Differential Diagnosis: Fracture, Sprain, Contusion, Arthritis, Bursitis X-Ray, Labs, Meds, VS Vital Signs Date Time Temp Pulse Resp B/P (MAP) Pulse Ox O2 Delivery O2 Flow Rate FiO2 03/07/25 15:21 98 16 96 Room Air 03/07/25 15:21 98.3 98 16 99/72 (81) 96 98.3 03/07/25 15:20 96 16 99/72 03/07/25 13:27 98.4 94 16 90/53 96 98.4 Current Medications Medications (Trade) Dose Ordered Sig/Joy Route Start Time Stop Time Status Last Admin Morphine Sulfate 4 mg ONCE ONCE IM 03/07/25 15:15 03/07/25 15:16 DC 03/07/25 15:20 [facility] [id number] [place] [id number] Ph: [phone] DIAGNOSTIC IMAGING Diagnostic Imaging Report : [id number] Signed PATIENT: PALOMO CRUZ ACCT: [id number] UNIT: [id number] : 1975 LOC: ER ROOM / BED: / AGE / SEX: 49 / F ADM STATUS: REG ER SERVICE [id number] ORDERING PHYSICIAN: ROBERT HANKINS PROCEDURE(s): LFOOT - L FOOT 3 VIEW XRAY REASON: FALL ORDER NUMBER(s): [id number], ACCESSION NUMBER(s): [id number] EXAM: XY L FOOT 3 VIEW XRAY CLINICAL INDICATION: FALL TECHNIQUE: XY L FOOT 3 VIEW XRAY Comparison: None FINDINGS/IMPRESSION: Surgical pin in the 1st digit. Displaced fracture of the base of the 2nd metatarsal. Nondisplaced fracture 5th metatarsal. Postoperative changes of the 3rd metatarsal. Lisfranc injury can not be excluded. ATED BY: COSTA SANDERS MD DICTATED DATE/TIME: 03/07/25 143 SIGNED BY: COSTA SANDERS MD SIGNED DATE/TIME: 03/07/25 143 CC: X-Ray, Labs, Meds, VS Comment EXTERNAL MEDICAL RECORDS REVIEWED: [NONE] INDEPENDENT HISTORIANS: [NONE] SOCIAL DETERMINANTS OF HEALTH: [NONE] LABS ORDERED: NONE REVIEWED AND INTERPRETED RESULTS: NONE IMAGING ORDERED: L FOOT XRAY SHOWED SURGICAL PIN IN THE 1ST DIGIT. DISPLACED FRACTURE OF THE BASE OF THE 2ND METATARSAL. NONDISPLACED FRACTURE OF THE 5TH METATARSAL. POSTOPERATIVE CHANGES OF THE 3RD METATARSAL. TREATMENTS ORDERED: MORPHINE 4MG IM, POSTERIOR FOOT SPLINT. PROCEDURES PERFORMED: NONE CRITICAL CARE TIME: NONE I HAVE DISCUSSED THE PATIENT WITH THE ATTENDING PHYSICIAN, DR. GALVEZ AND HE AGREES WITH THE PATIENT'S PLAN OF CARE AND DISPOSITION. BASED ON HISTORY OF PRESENT ILLNESS, AND PHYSICAL EXAM, PATIENT WILL BE DISCHARGED HOME. DISCUSSED PLAN FOR DISCHARGE HOME WITH RX [CEPHALEXIN]. MEDICATION WARNINGS GIVEN. SHARED DECISION MAKING: DISCUSSED WITH PATIENT THAT THEIR WORKUP WAS NORMAL. PATIENT INSTRUCTED TO FOLLOW UP WITH PRIMARY CARE PROVIDER IN 1-2 DAYS FOR RE- EVALUATION OF SYMPTOMS. PATIENT VERBALIZES UNDERSTANDING TO RETURN TO ED FOR NEW OR WORSENING SYMPTOMS OR IF FOLLOW UP WITH PCP CANNOT BE OBTAINED. PATIENT FEELS COMFORTABLE GOING HOME AT THIS TIME. ALL QUESTIONS ADDRESSED AT TIME OF DISCHARGE. Images Reviewed?: Images reviewed and evaluated by me Time of 1ST Reevaluation: 14:49 Reevaluation 1ST: Unchanged Patient Education/Counseling: Diagnosis, Treatment, Need For Follow Up Family Education/Counseling: No Family Present Medical Screening: No EMC Exist At This Time Departure 1 Departure Time of Disposition: 15:28 Impression: Primary Impression: Fracture of second metatarsal bone of left foot Qualified Codes: S92.322A - Displaced fracture of second metatarsal bone, left foot, initial encounter for closed fracture Additional Impression: Fracture of fifth metatarsal bone of left foot Qualified Codes: S92.355A - Nondisplaced fracture of fifth metatarsal bone, left foot, initial encounter for closed fracture Disposition: 01 HOME / SELF CARE / HOMELESS Condition: Stable Additional Instructions: FOLLOW-UP WITH PCP/ORTHOPEDIST CARLA. TAKE MEDICATIONS PRESCRIBED. RETURN TO ED FOR ANY NEW OR WORSENING SYMPTOMS. e-Prescriptions Cephalexin Monohydrate (Cephalexin) 500 Mg Cap 1 CAP PO TID, #30 CAP Prov: ROBERT HANKINS 03/07/25 Discharged With: Self, Relative Critical Care Note Critical Care Time?: No Stability Stability form required: No Heart Score Heart Score: Heart Score Response (Comments) Value History N/A 0 EKG N/A 0 Age N/A 0 Risk Factors N/A 0 Troponin N/A 0 Total 0 I personally scribed for ROBERT HANKINS ([email or web address]) on 03/07/25 at 14:42. Electronically submitted by Clari Argueta ([email or web address]). I personally scribed for ROBERT HANKINS ([email or web address]) on 03/07/25 at 15:11. Electronically submitted by Clari Argueta ([email or web address]). ROBERT HANKINS Mar 07, 2025 14:42
[2025-03-07] MEDS ORDERED: CEPH500C PO (15:11)
[2025-03-07] MEDS: MORPHINE SULFATE INJ 2 MG/ml SYRG IM ONE (15:20)
[2025-03-07 15:21] VITALS: BP 99/72; PULSE 98; RESP 16; TEMP 98.3; O2SAT 96
== END 2025-03-07 15:41 | disposition home or self-care (01) ==
LOC: ER 13:25
DX: S92.355A Nondisplaced fracture of fifth metatarsal bone, left foot, initial encounter for closed fracture (principal); S92.322A Displaced fracture of second metatarsal bone, left foot, initial encounter for closed fracture; F10.90 Alcohol use, unspecified, uncomplicated; F41.9 Anxiety disorder, unspecified; J45.909 Unspecified asthma, uncomplicated; F32.A Depression, unspecified; Z79.899 Other long term (current) drug therapy; Z87.11 Personal history of peptic ulcer disease; Z98.890 Other specified postprocedural states; W19.XXXA Unspecified fall, initial encounter; Y93.89 Activity, other specified; Y92.89 Other specified places as the place of occurrence of the external cause; Y99.8 Other external cause status; Y90.9 Presence of alcohol in blood, level not specified
CPT/HCPCS: 29515; 73630; 96372; 99283; J2270